=== PATIENT | female | born 1945 | race Caucasian/White ===

== ENCOUNTER → 2016-11-30 | Outpatient (CLI) | payer OTHER, MEDICARE ==
[~2016-11-30] MED LIST: ATOR-24 PO; CALC600T9 PO; CHOL1000 PO; CYNI1000 INJ; GLC/500 PO; LPR50X PO; NAPR1TAB9 PO; PRLSR20 PO; SERT-234 PO; SIMV40TA2 PO
== END | disposition home or self-care (01) ==
LOC: C.LABBC 09:49
PROVIDERS: ATTEND Internal Medicine Geriatric Medicine
DX: Z11.59 Encounter for screening for other viral diseases (principal)

== ENCOUNTER → 2016-12-31 | Outpatient (CLI) | payer OTHER, MEDICARE ==
--- NOTE | 2016-12-31 12:36 | MAMMOGRAPHY REPORT ---
BILATERAL DIGITAL SCREENING MAMMOGRAM WITH CAD: 12/31/2016 CLINICAL HISTORY: Routine screening. Patient has no complaints. TECHNIQUE: Current study was also evaluated with a Computer Aided Detection (CAD) system. Bilatera l CC and MLO views were obtained. COMPARISON: Comparison is made to exams dated: 12/19/2015 mammogram, 12/05/2013 mammogram, 12/11/2014 mammogram, 12/01/2012 mammogram, 06/15/2011 mammogram, and 06/09/2010 mammogram - [facility]. BREAST COMPOSITION: There are scattered areas of fibroglandular density in both breasts. FINDINGS: No suspicious masses, calcifications, or areas of architectural distortion are noted in e ither breast. There has been no significant interval change compared to prior exams. Scattered bilat eral benign-appearing calcifications are not significantly changed. IMPRESSION: ACR BI-RADS CATEGORY 2: BENIGN There is no mammographic evidence of malignancy. A 1 year screening mammogram is recommended. The p atient will receive written notification of the results. Approximately 10% of breast cancers are not detected with mammography. A negative mammographic repor t should not delay biopsy if a clinically suggestive mass is present. Omayra Manzanares M.D. ah/:12/31/2016 10:20:32 Shape Hand: Sofia CARTER(R)(M), [facility] letter sent: Normal 1/2 BI-RADS Code: ACR BI-RADS Category 2: Benign
== END | disposition home or self-care (01) ==
LOC: C.MAMM 10:02
PROVIDERS: ATTEND Internal Medicine Geriatric Medicine
DX: Z12.31 Encounter for screening mammogram for malignant neoplasm of breast (principal)

== ENCOUNTER → 2017-02-22 | Outpatient (CLI) | payer OTHER, MEDICARE ==
[2017-02-22 15:05] LABS: BASO % 0.9 %; BASO ABS # 0.08 K/uL (0-0.2); COMPLETE YES; EOS % 1.1 %; HEMATOCRIT 38.5 % (37-47); IG% 0.2 %; LYMPH % 16.9 %; LYMPH ABS # 1.54 K/uL (1.2-3.4); MEAN CORPUSCULAR HEMOGLOBIN 30.5 pg (25-34); MEAN CORPUSCULAR HGB CONC 33.5 g/dl (32-36); MEAN PLATELET VOLUME 10.8 fL (7.4-10.4); MONO % 4.9 %; PLATELET COUNT 324 K/uL (130-400); RED BLOOD COUNT 4.23 M/uL (4.2-5.4); WHITE BLOOD COUNT 9.11 K/uL (4.8-10.8)
[2017-02-22 15:33] LABS: ALT/SGPT 28 U/L (12-78); BLOOD UREA NITROGEN 14 mg/dl (7-18); BUN/CREATININE RATIO 18.1 (10-20); CALCIUM 9.1 mg/dl (8.5-10.1); CARBON DIOXIDE 23 mmol/L (21-32); CHLORIDE 104 mmol/L (98-107); CHOLESTEROL 148 mg/dl (0-200); CREATININE 0.78 mg/dl (0.60-1.20); GLUCOSE 154 mg/dl (70-99); POTASSIUM 3.8 mmol/L (3.5-5.1); SODIUM 138 mmol/L (136-145)
[2017-02-22 15:43] LABS: ALB/GLOB RATIO 1.2 (0.9-2); ALKALINE PHOSPHATASE 142 U/L (45-117); AST/SGOT 22 U/L (15-37); CHOLESTEROL/HDL RATIO 2.6; HDL CHOLESTEROL 57 mg/dl; LDL CHOLESTEROL CALCULATED 42 mg/dl; TRIGLYCERIDES 244 mg/dl (0-150); VERY LOW DENSITY LIPOPROT CALC 49 mg/dl
[2017-02-23 06:06] LABS: ESTIMATED AVERAGE GLUCOSE 131 mg/dl; HA1C FLAG Normal (Normal)
== END | disposition home or self-care (01) ==
LOC: C.LABBC 10:44
PROVIDERS: ATTEND Internal Medicine Geriatric Medicine
DX: M19.90 Unspecified osteoarthritis, unspecified site (principal); E11.9 Type 2 diabetes mellitus without complications; E55.9 Vitamin D deficiency, unspecified; E53.8 Deficiency of other specified B group vitamins; K76.0 Fatty (change of) liver, not elsewhere classified

== ENCOUNTER 2017-04-19 16:08 | Emergency (ER) | payer OTHER, MEDICARE ==
[~2017-04-19] VITALS: Ht 149.9 cm; Wt 69.6 kg
[~2017-04-19 16:08] MED LIST changes: -SIMV40TA2 PO
[2017-04-19 16:12] VITALS: TEMP 36.8; Ht 149.9 cm; Wt 69.6 kg
--- NOTE | 2017-04-19 16:20 | EMERGENCY ROOM VISIT NOTE ---
ED Visit Note First contact with patient: 16:19 I have seen and examined this patient with Didier Erickson and generally agree with the treatment plan as discussed. Problem List Medical Problems: (1) Broken foot Status: Resolved Current/Historical Medications Scheduled Atorvastatin (Lipitor), 40 MG PO HS Calcium Carbonate-Vitamin D (Calcium + D), 1 TAB PO NOON Cholecalciferol (Vitamin D3), 1 TAB PO NOON Cyanocobalamin (Cyanocobalamin), 1 DOSE INJ DIRECTED Metformin Hcl (Glucophage), 500 MG PO BID Metoprolol Tartrate (Metoprolol Tartrate), 25 MG PO BID Naproxen (Aleve), 220 MG PO NOON Omeprazole (Prilosec), 20 MG PO QAM Sertraline (Zoloft), 1.5 TAB PO HS Allergies Coded Allergies: Cefuroxime (Verified Allergy, Unknown, PT DOES NOT REMEMBER REACTION, 04/12) Doxycycline (Verified Allergy, Unknown, GI UPSET AND DIZZINESS, 04/12/17) Sulfa Drugs (Verified Allergy, Unknown, HIVES, 04/12/17) Uncoded Allergies: EARRINGS (Allergy, Unknown, PASSED OUT AND SKIN IRRITATION, 04/12/17) Vital Signs Date Time Temp Pulse Resp B/P Pulse Ox O2 Delivery O2 Flow Rate FiO2 04/19/17 16:12 36.8 91 18 111/69 96 Room Air Departure Information Referrals Ellis Auguste M.D. (PCP) Patient Instructions My [facility]
--- NOTE | 2017-04-19 16:42 | EMERGENCY ROOM VISIT NOTE ---
History First contact with patient: 16:19 Chief Complaint: FALL Stated Complaint: FALL, MINOR FACIAL INJURIES History of Present Illness The patient is a 71 year old female who presents to the Emergency Room with complaints of "fall, minor facial injuries". The patient states that today between 1:30 and 2 PM she was walking at the [place], looking around when she suddenly fall, is unsure why she fell, and fell forward striking the pavement with her face and right hand. She states that her right hip may have given out on her, as it has given out on her many times over the past few weeks. She is right-handed. She points to the dorsal aspect of the right hand/wrist as a location of pain. She also has a headache, and pain around the right eye. She points to some bleeding around the mouth and right eye. She believes her tetanus is up-to-date. She denies any history of heart problems, blood clots, hemoptysis, chest pain, shortness of breath, loss of consciousness. She does have a history of what she believes is a mini stroke. Review of Systems A complete 10-point Review of Systems was discussed with the patient, with pertinent positives and negatives listed in the History of Present Illness. All remaining Review of Systems questions can be considered negative unless otherwise specified. Past Medical/Surgical History Medical Problems: (1) Broken foot Family History No significant family history Social History Smoking Status: Never Smoker Housing Status: lives alone Occupation Status: retired Current/Historical Medications Scheduled Atorvastatin (Lipitor), 40 MG PO HS Calcium Carbonate-Vitamin D (Calcium + D), 1 TAB PO NOON Cholecalciferol (Vitamin D3), 1 TAB PO NOON Cyanocobalamin (Cyanocobalamin), 1 DOSE INJ DIRECTED Metformin Hcl (Glucophage), 500 MG PO BID Metoprolol Tartrate (Metoprolol Tartrate), 25 MG PO BID Naproxen (Aleve), 220 MG PO NOON Omeprazole (Prilosec), 20 MG PO QAM Sertraline (Zoloft), 1.5 TAB PO HS Allergies Coded Allergies: Cefuroxime (Verified Allergy, Unknown, PT DOES NOT REMEMBER REACTION, 04/19) Doxycycline (Verified Allergy, Unknown, GI UPSET AND DIZZINESS, 04/19/17) Sulfa Drugs (Verified Allergy, Unknown, HIVES, 04/19/17) Uncoded Allergies: EARRINGS (Allergy, Unknown, PASSED OUT AND SKIN IRRITATION, 04/12/17) Physical Exam Vital Signs Date Time Temp Pulse Resp B/P Pulse Ox O2 Delivery O2 Flow Rate FiO2 04/19/17 18:57 70 16 131/77 97 Room Air 04/19/17 18:10 81 04/19/17 18:07 100 Room Air 04/19/17 18:07 76 18 144/81 100 Room Air 04/19/17 16:12 36.8 91 18 111/69 96 Room Air Physical Exam VITAL SIGNS - Vital signs and nursing notes were reviewed. Patient is afebrile , normotensive, non-tachycardic and is saturating well on room air 96%. GENERAL -71-year-old female appearing her stated age. Communicates well with provider and answers questions appropriately. SKIN - Gross examination of the entire body surface demonstrates no lacerations to the body, there are numerous abrasions noted to the upper lip, and right periorbital region. There is ecchymosis and edema around the right periorbital region. There is a small abrasion noted to the right anterior knee. The integument is intact overlying the right hand/wrist. HEAD - Normocephalic, Atraumatic. No Nieves's Sign or Raccoon's Eyes. No depressed skull fractures palpable. EYES - PERRL with EOMI bilaterally. Without subconjunctival hemorrhage. Palpebral conjunctiva pink and moist with no injection. EARS - No deformities of external structures noted on gross examination bilaterally. No hemotympanum present. No tympanic perforation noted. Handle of malleus, umbo, cone of light, pars tensa/flaccid all easily visualized. NOSE - Midline and without cyanosis. No epistaxis or clear watery discharge noted. Septum midline without deviation. No septal hematoma noted. No overlying ecchymosis noted. MOUTH/OROPHARYNX - Without perioral cyanosis. Tongue midline with equal elevation of palate bilaterally. No blood noted in the oropharynx. No tonsillar hypertrophy, erythema, or exudates noted. No dental fractures noted. NECK - no tenderness to palpation over the cervical spinous processes. No cervical paraspinal muscle tenderness noted. No thoracic or lumbar tenderness. LUNGS - Chest wall symmetric without accessory muscle use, intercostals retractions, or central cyanosis. No flail chest or depressed fractures noted. No paradoxical chest wall movements noted. Normal vesicular breath sounds CTA B /L. No wheezes, rales, or rhonchi appreciated. CARDIAC - RRR with S1/S2. No murmur, rubs, or gallops appreciated. ABDOMEN - Abdominal contour and without pulsations or visible masses. BS normoactive all four quadrants. No rebound tenderness or guarding noted. Negative Issa's or Hall Johnson's Signs. No tenderness, palpable masses, hepatosplenomegaly, or ascites noted. EXTREMITIES - No gross deformities noted of the extremities. There is tenderness to palpation of the right dorsal aspect of the proximal hand/wrist. Decreased range of motion and air traffic control specialist strength of this region secondary to pain. She is neurovascularly intact. +5/5 strength noted in UE/LE bilaterally. No tenderness to palpation overlying the right proximal arm, left arm, left leg right leg. Active flexion of the right leg against examiner's resistance elicits pain in the right hip. There is slight decreased strength on this region secondary to pain. NEUROLOGIC - Cranial nerves II through XII grossly intact. Sensory intact to light touch throughout. PSYCH - A&Ox3 and cooperates fully with examiner. Pt is very pleasant and interacts well with examiner. Medical Decision & Procedures ER Provider Diagnostic Interpretation: CT OF THE HEAD WITHOUT CONTRAST CLINICAL HISTORY: Fall, struck face on pavement, right periorbital edema. COMPARISON STUDY: Head CT August 28, 2016. TECHNIQUE: Helical axial images of the head were obtained without IV contrast. Automated exposure control was utilized for the study. FINDINGS: No acute intracranial hemorrhage, midline shift or mass effect is present. Ventricular system is stable. Basilar cisterns are patent. There are no extra-axial collections. There are no findings to suggest acute dural sinus thrombosis or acute territorial infarct. There is a right periorbital contusion. There is no retrobulbar hematoma and the globes are intact. There is no calvarial fracture. The facial bones are better depicted on the maxillofacial CT. There is mild mucosal thickening of the ethmoid sinuses. IMPRESSION: 1. No acute intracranial findings. 2. No calvarial fracture. 3. Right periorbital contusion. Globes intact with no retrobulbar hematoma. Electronically signed by: Alex Kendrick M.D. 04/19/2017 5:22 PM Dictated Date/Time: 04/19/2017 5:[address] WITHOUT CONTRAST CLINICAL HISTORY: Fall, struck face on pavement, right periorbital edema. COMPARISON STUDY: Head CT August 28, 2016. TECHNIQUE: A maxillofacial CT was performed without IV contrast. Coronal and sagittal reformats were viewed. FINDINGS: There is a right periorbital contusion. The globes are intact and there is no retrobulbar hematoma. There is no acute facial bone fracture. There is mild to moderate mucosal thickening within the sinuses with postsurgical findings within the sinuses. There is no skull base fracture. The cervical spine CT will be reported separately. Orbital floors are intact. IMPRESSION: 1. No acute facial fracture. 2. Right periorbital contusion. Globes intact with no retrobulbar hematoma. Electronically signed by: Alex Kendrick M.D. 04/19/2017 5:27 PM Dictated Date/Time: 04/19/2017 5:[address] OF THE CERVICAL SPINE WITHOUT CONTRAST CLINICAL HISTORY: Fall, struck face on pavement, right periorbital edema. COMPARISON STUDY: No previous studies for comparison. TECHNIQUE: Helical axial images of the cervical spine were obtained without IV contrast. Sagittal and coronal reconstructions were viewed. FINDINGS: The craniocervical junction is intact. There is no acute cervical spine fracture. Vertebral body heights are maintained. Moderate multilevel degenerative disc disease is present with mild to moderate multilevel facet arthrosis. There is a mildly displaced comminuted proximal left clavicular fracture that extends to the sternoclavicular joint. There is callus formation. This fracture is likely chronic. There is no pneumothorax within visualized portions of the lung apices. IMPRESSION: 1. No acute cervical spine fracture or subluxation. 2. Comminuted, mildly displaced proximal left clavicular fracture with extension to the sternoclavicular joint. 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 Electronically signed by: Alex Kendrick M.D. 04/19/2017 5:39 PM Dictated Date/Time: 04/19/2017 5:33 PM CHEST ONE VIEW PORTABLE CLINICAL HISTORY: Fall COMPARISON STUDY: Chest radiograph August 28, 2016. FINDINGS: There is no pneumothorax or pleural effusion. Lungs are clear. Cardiac size is normal. Mediastinal contours are normal. There is mild shaped scoliosis of the thoracolumbar spine. IMPRESSION: No acute cardiopulmonary findings. Electronically signed by: Alex Kendrick M.D. 04/19/2017 5:55 PM Dictated Date/Time: 04/19/2017 5:54 PM RIGHT PELVIS/UNILATERAL HIP 2-3VIEWS CLINICAL HISTORY: Right hip pain following fall. COMPARISON: None FINDINGS: A 2.2 cm calcific density along the subtrochanteric portion of the left femur is chronic. There is no acute fracture within the pelvis or hips. Sacroiliac joints and symphysis pubis are intact. IMPRESSION: No acute fracture within the pelvis or hips. Electronically signed by: Alex Kendrick M.D. 04/19/2017 5:58 PM Dictated Date/Time: 04/19/2017 5:55 PM RIGHT PELVIS/UNILATERAL HIP 2-3VIEWS CLINICAL HISTORY: Right hip pain following fall. COMPARISON: None FINDINGS: A 2.2 cm calcific density along the subtrochanteric portion of the left femur is chronic. There is no acute fracture within the pelvis or hips. Sacroiliac joints and symphysis pubis are intact. IMPRESSION: No acute fracture within the pelvis or hips. Electronically signed by: Alex Kendrick M.D. 04/19/2017 5:58 PM Dictated Date/Time: 04/19/2017 5:55 PM RIGHT FOREARM 2 VIEWS ROUTINE CLINICAL HISTORY: Fall, right hand/wrist pain. COMPARISON: None FINDINGS: There is no acute fracture of the right radius or ulna. Alignment of the right elbow is anatomic and there is no evidence for right elbow joint effusion. There is a suspected acute fracture within the base of the right fourth metacarpal with an adjacent bone fragments and measures approximately 5 mm. IMPRESSION: 1. No acute fracture of the right radius or ulna. 2. Acute fracture within the base of the right fourth metacarpal with an adjacent bone fragment. Electronically signed by: Alex Kendrick M.D. 04/19/2017 6:01 PM Dictated Date/Time: 04/19/2017 5:58 PM RIGHT HAND MIN 3 VIEWS ROUTINE CLINICAL HISTORY: Right hand and wrist pain following fall. COMPARISON: None FINDINGS: There is an acute fracture within the base of the right fourth metacarpal with an adjacent bone fragment. There is also a suspected minimally displaced fracture of the distal shaft of the right fourth metacarpal which extends into the neck. IMPRESSION: 1. Acute fracture of the base of the right fourth metacarpal with associated fracture fragment. 2. Acute minimally displaced fracture of the distal shaft of the right fourth metacarpal. Electronically signed by: Alex Kendrick M.D. 04/19/2017 6:03 PM Dictated Date/Time: 04/19/2017 6:01 PM Laboratory Results 04/19/17 17:52 Red Blood Count 3.88, Mean Corpuscular Volume 91.5, Mean Corpuscular Hemoglobin 30.4, Mean Corpuscular Hemoglobin Concent 33.2, Mean Platelet Volume 9.8, Neutrophils (%) (Auto) 78.7, Lymphocytes (%) (Auto) 15.6, Monocytes (%) (Auto) 4.2, Eosinophils (%) (Auto) 0.9, Basophils (%) (Auto) 0.4, Neutrophils # (Auto) 9.65, Lymphocytes # (Auto) 1.91, Monocytes # (Auto) 0.51, Eosinophils # (Auto) 0.11, Basophils # (Auto) 0.05 04/19/17 16:50 Test 04/19/17 16:50 04/19/17 16:55 04/19/17 17:52 04/19/17 18:04 Prothrombin Time 10.0 SECONDS (9.0-12.0) Prothromb Time International Ratio 0.9 (0.9-1.1) Activated Partial Thromboplast Time 23.0 SECONDS (21.0-31.0) Partial Thromboplastin Ratio 0.9 Anion Gap 9.0 mmol/L (3-11) Est Creatinine Clear Calc Drug Dose 57.7 ml/min Estimated GFR () 90.7 Estimated GFR (Non- 78.2 BUN/Creatinine Ratio 19.2 (10-20) Calcium Level 8.9 mg/dl (8.5-10.1) Magnesium Level 1.8 mg/dl (1.8-2.4) Total Bilirubin 0.3 mg/dl (0.2-1) Aspartate Amino Transf (AST/SGOT) 23 U/L (15-37) Alanine Aminotransferase (ALT/SGPT) 31 U/L (12-78) Alkaline Phosphatase 143 U/L (45-117) Total Protein 7.0 gm/dl (6.4-8.2) Albumin 4.1 gm/dl (3.4-5.0) Globulin 2.9 gm/dl (2.5-4.0) Albumin/Globulin Ratio 1.4 (0.9-2) Thyroid Stimulating Hormone (TSH) 2.110 uIu/ml (0.300-4.500) Bedside Troponin I 0.000 ng/ml (0-0.045) White Blood Count 12.26 K/uL (4.8-10.8) Red Blood Count 3.88 M/uL (4.2-5.4) Hemoglobin 11.8 g/dL (12.0-16.0) Hematocrit 35.5 % (37-47) Mean Corpuscular Volume 91.5 fL (80-100) Mean Corpuscular Hemoglobin 30.4 pg (25-34) Mean Corpuscular Hemoglobin Concent 33.2 g/dl (32-36) Platelet Count 311 K/uL (130-400) Mean Platelet Volume 9.8 fL (7.4-10.4) Neutrophils (%) (Auto) 78.7 % Lymphocytes (%) (Auto) 15.6 % Monocytes (%) (Auto) 4.2 % Eosinophils (%) (Auto) 0.9 % Basophils (%) (Auto) 0.4 % Neutrophils # (Auto) 9.65 K/uL (1.4-6.5) Lymphocytes # (Auto) 1.91 K/uL (1.2-3.4) Monocytes # (Auto) 0.51 K/uL (0.11-0.59) Eosinophils # (Auto) 0.11 K/uL (0-0.5) Basophils # (Auto) 0.05 K/uL (0-0.2) RDW Standard Deviation 44.3 fL (36.4-46.3) RDW Coefficient of Variation 13.3 % (11.5-14.5) Immature Granulocyte % (Auto) 0.2 % Immature Granulocyte # (Auto) 0.03 K/uL (0.00-0.02) Urine Color YELLOW Urine Appearance CLEAR (CLEAR) Urine pH 5.5 (4.5-7.5) Urine Specific [place] 1.007 (1.000-1.030) Urine Protein NEG (NEG) Urine Glucose (UA) NEG (NEG) Urine Ketones NEG (NEG) Urine Occult Blood NEG (NEG) Urine Nitrite NEG (NEG) Urine Bilirubin NEG (NEG) Urine Urobilinogen NEG (NEG) Urine Leukocyte Esterase NEG (NEG) Medical Decision Patient was seen and evaluated as above. After obtaining a thorough history and physical examination IV access was initiated, and the above workup was performed. Patient presents status post fall from the ground level. She struck her right orbital region, and broke the fall with her right hand. She states she has a high pain tolerance. This occurred today around 1:32 PM. She denies passing out or syncopal event. She denies any lightheadedness. She believes that her right hip may have given out on her as it has over the past few weeks. She states that she fell on the pavement. She is right-handed. Someone did assist her in standing back up. Her tetanus is up-to-date. She denies any history of heart problems, history of blood clots, hemoptysis, chest pain, shortness of breath, loss of consciousness. There is associated headache today, pain around the right eye and around her mouth. At this time I do believe that imaging is appropriate, to include CT scan of the head, face and neck secondary to mechanism of injury as well as radiographs of the right hip and right hand. CT scan of the head face and neck are negative for acute process. Radiograph Of the right hip reveals a calcified region, otherwise negative. Right hand does reveal a fourth metacarpal fracture. For that she'll be placed in an ulnar gutter/boxer splint. This was placed with good fit. She was neurologically intact. She was neurovascularly intact. Her EKG does show that she has change compared to previous, but no evidence of OK at this time. She was informed upon findings of today's workup, and is to follow-up with a linseed oil order filler, her family doctor any bone doctor. Assistant Analyst is due to EKG changes over the past 12 years. No acute change. The patient climbed pain medication. Case was discussed with my attending, who also personally evaluated the patient. Patient was educated upon worrisome symptoms which to return, educated upon management of today's findings, had questions prior to discharge, and was discharged home in good condition. CBC reveals mild leukocytosis which I suspect secondary to today's fracture and fall. Chest x-ray was negative for acute process. I do not believe the patient had a syncopal event rather believe this was a mechanical fall. Mild anemia noted. No evidence of acute renal or liver failure. In the evaluation and treatment of this patient, the following differential diagnoses were considered: Concussion, Contrecoup Injury, Brain Tumor, Depression, Encephalitis, Hypothyroidism, Meningitis, CVA, TIA, Migraine, Cluster Headache, Intracranial Abnormality, Intracranial Hemorrhage, Subdural Hematoma, Subarachnoid Hemorrhage, Hydrocephalus, Wrist Sprain, Wrist Fracture, Wrist Dislocation, Scapholunate Dissociation, Carpal Fracture, Metacarpal Fracture, Radial Styloid Process Fracture, Ulnar Styloid Process Fracture, or Carpal Tunnel Syndrome. Hip Fracture, Hip Dislocation, Greater Trochanteric Bursitis, Musculoskeletal Pain, Lumbar Radiculopathy, among others. Impression Primary Impression: Fall Additional Impressions: Anemia Contusion of multiple sites Fracture of metacarpal of right hand, closed Departure Information Dispostion Home / Self-Care Condition GOOD Referrals Ellis Auguste M.D. (PCP) Tucker Valadez D.O. Szymanski, Alexander W., MD Patient Instructions My [facility] Additional Instructions You have been treated in the Emergency Department for Wrist Pain, right eye, head, hip and clavicle pain. For pain control, you can use the following [id number] medicines (if >12 yo): - Regular strength (325mg/tab) Tylenol (acetaminophen) 2 tabs every 4-6 hours as needed. Do not exceed 12 tablets in a 24 hour period. Avoid taking more than 3 grams (3000 mg) of Tylenol per day. This includes any other sources of acetaminophen you may take on a regular basis. - Regular strength (200 mg/tab) Advil (ibuprofen) 1-2 tabs every 4-6 hours as needed. Do not exceed a dose of 3200 mg per day. If this is a recent injury (<24 hrs), ice can be applied to the area of pain for the first 3 days to help decrease pain and inflammation. You have been provided the number for an Orthopaedic Surgeon. You should call this number as soon as possible to establish a follow-up visit from today's Emergency Department visit. (Dr. Valadez) There have been EKG changes, it is recommended to follow-up with her family doctor guarding this, followed by cardiology. The number has been listed within this paperwork. Your found to be slightly anemic here today. These follow-up with her family doctor regarding this. Keep the brace/splint in place until evaluated by Orthopedics. Return to the Emergency Department if your current symptoms worsen despite treatment course outlined above, or if you develop any of the following symptoms : intractable pain despite aforementioned treatment course or new onset of numbness or tingling of the fingers. Please return to emergency department with any new/concerning symptoms. Problem Qualifiers
[2017-04-19 17:13] LABS: INR 0.9 (0.9-1.1); PARTIAL THROMBOPLASTIN RATIO 0.9
--- NOTE | 2017-04-19 17:23 | DIAGNOSTIC IMAGING REPORT ---
CT OF THE HEAD WITHOUT CONTRAST CLINICAL HISTORY: Fall, struck face on pavement, right periorbital edema. COMPARISON STUDY: Head CT August 28, 2016. TECHNIQUE: Helical axial images of the head were obtained without IV contrast. Automated exposure control was utilized for the study. FINDINGS: No acute intracranial hemorrhage, midline shift or mass effect is present. Ventricular system is stable. Basilar cisterns are patent. There are no extra-axial collections. There are no findings to suggest acute dural sinus thrombosis or acute territorial infarct. There is a right periorbital contusion. There is no retrobulbar hematoma and the globes are intact. There is no calvarial fracture. The facial bones are better depicted on the maxillofacial CT. There is mild mucosal thickening of the ethmoid sinuses. IMPRESSION: 1. No acute intracranial findings. 2. No calvarial fracture. 3. Right periorbital contusion. Globes intact with no retrobulbar hematoma. Electronically signed by: Alex Kendrick M.D. 04/19/2017 5:22 PM Dictated Date/Time: 04/19/2017 5:18 PM
[2017-04-19 17:27] LABS: BUN/CREATININE RATIO 19.2 (10-20); CALCIUM 8.9 mg/dl (8.5-10.1); CREATININE 0.77 mg/dl (0.60-1.20); MAGNESIUM 1.8 mg/dl (1.8-2.4); POTASSIUM 3.8 mmol/L (3.5-5.1)
--- NOTE | 2017-04-19 17:28 | DIAGNOSTIC IMAGING REPORT ---
MAXILLOFACIAL CT WITHOUT CONTRAST CLINICAL HISTORY: Fall, struck face on pavement, right periorbital edema. COMPARISON STUDY: Head CT August 28, 2016. TECHNIQUE: A maxillofacial CT was performed without IV contrast. Coronal and sagittal reformats were viewed. FINDINGS: There is a right periorbital contusion. The globes are intact and there is no retrobulbar hematoma. There is no acute facial bone fracture. There is mild to moderate mucosal thickening within the sinuses with postsurgical findings within the sinuses. There is no skull base fracture. The cervical spine CT will be reported separately. Orbital floors are intact. IMPRESSION: 1. No acute facial fracture. 2. Right periorbital contusion. Globes intact with no retrobulbar hematoma. Electronically signed by: Alex Kendrick M.D. 04/19/2017 5:27 PM Dictated Date/Time: 04/19/2017 5:22 PM
[2017-04-19 17:38] LABS: ALB/GLOB RATIO 1.4 (0.9-2); THYROID STIMULATING HORMONE 2.11 uIu/ml (0.300-4.500)
--- NOTE | 2017-04-19 17:40 | DIAGNOSTIC IMAGING REPORT ---
CT OF THE CERVICAL SPINE WITHOUT CONTRAST CLINICAL HISTORY: Fall, struck face on pavement, right periorbital edema. COMPARISON STUDY: No previous studies for comparison. TECHNIQUE: Helical axial images of the cervical spine were obtained without IV contrast. Sagittal and coronal reconstructions were viewed. FINDINGS: The craniocervical junction is intact. There is no acute cervical spine fracture. Vertebral body heights are maintained. Moderate multilevel degenerative disc disease is present with mild to moderate multilevel facet arthrosis. There is a mildly displaced comminuted proximal left clavicular fracture that extends to the sternoclavicular joint. There is callus formation. This fracture is likely chronic. There is no pneumothorax within visualized portions of the lung apices. IMPRESSION: 1. No acute cervical spine fracture or subluxation. 2. Comminuted, mildly displaced proximal left clavicular fracture with extension to the sternoclavicular joint. 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 Electronically signed by: Alex Kendrick M.D. 04/19/2017 5:39 PM Dictated Date/Time: 04/19/2017 5:33 PM
--- NOTE | 2017-04-19 17:56 | DIAGNOSTIC IMAGING REPORT ---
CHEST ONE VIEW PORTABLE CLINICAL HISTORY: Fall COMPARISON STUDY: Chest radiograph August 28, 2016. FINDINGS: There is no pneumothorax or pleural effusion. Lungs are clear. Cardiac size is normal. Mediastinal contours are normal. There is mild shaped scoliosis of the thoracolumbar spine. IMPRESSION: No acute cardiopulmonary findings. Electronically signed by: Alex Kendrick M.D. 04/19/2017 5:55 PM Dictated Date/Time: 04/19/2017 5:54 PM
--- NOTE | 2017-04-19 17:59 | DIAGNOSTIC IMAGING REPORT ---
RIGHT PELVIS/UNILATERAL HIP 2-3VIEWS CLINICAL HISTORY: Right hip pain following fall. COMPARISON: None FINDINGS: A 2.2 cm calcific density along the subtrochanteric portion of the left femur is chronic. There is no acute fracture within the pelvis or hips. Sacroiliac joints and symphysis pubis are intact. IMPRESSION: No acute fracture within the pelvis or hips. Electronically signed by: Alex Kendrick M.D. 04/19/2017 5:58 PM Dictated Date/Time: 04/19/2017 5:55 PM
[2017-04-19 18:01] LABS: BASO % 0.4 %; BASO ABS # 0.05 K/uL (0-0.2); COMPLETE YES; EOS % 0.9 %; HEMATOCRIT 35.5 % (37-47); IG% 0.2 %; LYMPH % 15.6 %; LYMPH ABS # 1.91 K/uL (1.2-3.4); MEAN CELL VOLUME 91.5 fL (80-100); MEAN CORPUSCULAR HEMOGLOBIN 30.4 pg (25-34); MEAN CORPUSCULAR HGB CONC 33.2 g/dl (32-36); MEAN PLATELET VOLUME 9.8 fL (7.4-10.4); MONO % 4.2 %; NEUT % 78.7 %; PLATELET COUNT 311 K/uL (130-400); RED BLOOD COUNT 3.88 M/uL (4.2-5.4); WHITE BLOOD COUNT 12.26 K/uL (4.8-10.8)
--- NOTE | 2017-04-19 18:03 | DIAGNOSTIC IMAGING REPORT ---
RIGHT FOREARM 2 VIEWS ROUTINE CLINICAL HISTORY: Fall, right hand/wrist pain. COMPARISON: None FINDINGS: There is no acute fracture of the right radius or ulna. Alignment of the right elbow is anatomic and there is no evidence for right elbow joint effusion. There is a suspected acute fracture within the base of the right fourth metacarpal with an adjacent bone fragments and measures approximately 5 mm. IMPRESSION: 1. No acute fracture of the right radius or ulna. 2. Acute fracture within the base of the right fourth metacarpal with an adjacent bone fragment. Electronically signed by: Alex Kendrick M.D. 04/19/2017 6:01 PM Dictated Date/Time: 04/19/2017 5:58 PM
--- NOTE | 2017-04-19 18:05 | DIAGNOSTIC IMAGING REPORT ---
RIGHT HAND MIN 3 VIEWS ROUTINE CLINICAL HISTORY: Right hand and wrist pain following fall. COMPARISON: None FINDINGS: There is an acute fracture within the base of the right fourth metacarpal with an adjacent bone fragment. There is also a suspected minimally displaced fracture of the distal shaft of the right fourth metacarpal which extends into the neck. IMPRESSION: 1. Acute fracture of the base of the right fourth metacarpal with associated fracture fragment. 2. Acute minimally displaced fracture of the distal shaft of the right fourth metacarpal. Electronically signed by: Alex Kendrick M.D. 04/19/2017 6:03 PM Dictated Date/Time: 04/19/2017 6:01 PM
[2017-04-19 18:07] VITALS: O2SAT 100
[2017-04-19 18:57] VITALS: BP 131/77; PULSE 70; O2SAT 97
[2017-04-19 19:01] LABS: URINE APPEARANCE CLEAR (CLEAR); URINE BILIRUBIN NEG (NEG); URINE COLOR YELLOW; URINE NITRITE NEG (NEG); URINE PH 5.5 (4.5-7.5); URINE SPECIFIC GRAVITY 1.007 (1.000-1.030); UROBILINOGEN NEG (NEG); ZZUR CULT IF INDIC CLEAN CATCH NO
[2017-04-19 19:12] LABS: MANUAL MICROSCOPIC REQUIRED? NO; REVIEW REQ? NO
== END 2017-04-19 19:21 | disposition home or self-care (01) ==
LOC: C.EDB 16:09 → C.EDC 19:21
DX: S62.314A Displaced fracture of base of fourth metacarpal bone, right hand, initial encounter for closed fracture (principal); S62.324A Displaced fracture of shaft of fourth metacarpal bone, right hand, initial encounter for closed fracture; S00.511A Abrasion of lip, initial encounter; S00.211A Abrasion of right eyelid and periocular area, initial encounter; S00.11XA Contusion of right eyelid and periocular area, initial encounter; S80.211A Abrasion, right knee, initial encounter; W18.30XA Fall on same level, unspecified, initial encounter; D64.9 Anemia, unspecified

== ENCOUNTER → 2017-06-01 | Day surgery (SDC) | payer OTHER, MEDICARE ==
[2017-05-11 10:22] VITALS: Ht 149.9 cm; Wt 69.1 kg
[~2017-06-01] VITALS: Ht 149.9 cm; Wt 69.1 kg
[~2017-06-01] MED LIST changes: +500ML BSS 0.3ML EPI 1:1000PF IRRIG ONE; +ACETAMINOPHEN 325 MG TAB PO PRN; +AMVISC PLUS 0.8ML SYRINGE INT OCU ONE; +ATROPINE SULFATE 0.1 MG/ML 5ML SYR IV PRN; +BSS FLUSH ONE; +EpHEDrine SULFATE INJ 50 MG/ML AMP IV PRN; +EpINEphrine INJ 1MG/ML AMP 1 MG/ML AMP ONE; +LACTATED RINGER'S 1000ML 500 ML IV SCH; +LIDOCAINE 3.5% OPH GEL PER APPLICATION CHARGE ONE; +LIDOCAINE HCL 1% MPF 2 ML VIAL ONE; +MIDAZOLAM HCL 1 MG/ML 2ML VIAL ONE; +OCUCOAT 1 ML SOLN IO ONE; +PHENYLEPHRINE HCL 10% OP SOLN PER DROP CHARGE OPR SCH; +POVIDONE-IODINE OP SOLN 30 ML BTL ONE; +PROPARACAINE 0.5% OP SOLN PER DROP CHARGE OPR SCH; +TOBRAMYCIN/DEXAMETHASONE OPH OINT PER APPLN CHARGE ONE
[2017-06-01] MEDS: PHENYLEPHRINE HCL 2.5% OP SOLN PER DROP CHARGE OPR SCH ×2 (06:39→06:49)
[2017-06-01] MEDS: TROPICAMIDE 1% OP SOLN PER DROP CHARGE OPR SCH ×2 (06:40→06:50)
[2017-06-01] MEDS: CYCLOPENTOLATE HCL 1% OP SOLN PER DROP CHARGE OPR SCH ×2 (06:42→06:51)
[2017-06-01] MEDS: KETOROLAC 0.5% OP SOLN PER DROP CHARGE OPR SCH ×2 (06:43→06:53)
[2017-06-01] MEDS: GATIFLOXACIN OP SOLN PER DROP CHARGE OPR SCH ×2 (06:44→06:55)
--- NOTE | 2017-06-01 06:55 | History & Physical Bridge - [place] ---
H&P Re-Evaluation Bridge Note: I have examined the patient, reviewed the History & Physical and in the interval since the performance of the History & Physical I have noted the following changes of clinical significance: No changes noted
--- NOTE | 2017-06-01 07:45 | Discharge Instructions-SurgCtr ---
Discharge Instructions Date of Service Jun 01, 2017. Visit Reason for Visit: Cataract Right Eye Discharge Discharge Diagnosis / Problem: cataract Discharge Goals Goal(s): Improve function Medications Stopped Medications Name(s): METFORMIN HELD FOR 48 HOURS Activity Recommendations Activity Limitations: per Instructions/Follow-up section Anesthesia . Post Anesthesia Instructions: If you have had General Anesthesia or IV Sedation: * Do not drive today. * Resume driving when surgeon permits. * Do not make important decisions or sign legal documents today. * Call surgeon for: 1. Temperature elevations greater than 101 degrees F. 2. Uncontrollable pain. 3. Excessive bleeding. 4. Persistent nausea and vomiting. 5. Medication intolerance (nausea, vomiting or rash). * For nausea and vomiting use only clear liquids such as: tea, soda, bouillon until nausea subsides, then gradually increase diet as tolerated. * If you have any concerns or questions, call your surgeon's office. If physician is unavailable and it is an emergency, call 911 or go to the nearest emergency room. . Instructions / Follow-Up Instructions / Follow-Up ACTIVITY RECOMMENDATIONS: * No strenuous lifting, jogging or running for 4 days * No swimming or yard work for 1 week. * Limited bending is permitted, such as putting on shoes. RETURN TO SCHOOL/WORK: No work until seen by physician in office. MEDICATIONS: Resume previous medications unless instructed otherwise by your surgeon. This includes eye drops for glaucoma. Zymaxid/Gatifloxacin (orlando cap) - one drop every 2 hours until bedtime Nevanac/Ilevro/Prolensa/Ketorolac (pritchard cap) - one drop every 4 hours until bedtime Prednisolone/Durezol (white/pink cap, SHAKE WELL) - one drop every 2 hours until bedtime Starting tomorrow - all 3 drops every 4 hours until seen in the office Optive drops - as needed for discomfort SPECIAL CARE INSTRUCTIONS: * Wear eyeshield when sleeping, for four nights. * You may wear your own glasses or sunglasses while awake. * You may read or watch TV * You may shower and wash your face, but be gentle around the eye and pat dry. * Blurry vision and mild irritation are normal. * Call office if pain is more severe or vision becomes dark at . FOLLOW UP VISIT: Follow-up with Dr Koehler tomorrow. Diet Recommendations Home Diet: resume previous diet Procedures Procedures Performed: Right Cataract Phacoemulsification With Intraocular Lens Implant Pending Studies Studies pending at discharge: no Medical Emergencies . Who to Call and When: Medical Emergencies: If at any time you feel your situation is an emergency, please call 911 immediately. . Non-Emergent Contact Non-Emergency issues call your: Mysql Database Administrator . . "Provider Documentation" section prepared by Tre Koehler. .
--- NOTE | 2017-06-01 07:45 | [facility] Operative Report ---
Operative Report Date of Service Jun 01, 2017. Operative Report 1. PREOPERATIVE DIAGNOSIS: Cataract of the right eye. 2. POSTOPERATIVE DIAGNOSIS: Same. 3. PROCEDURE: Phacoemulsification with intraocular lens implantation of the right eye. SURGEON: Dr. Tre Koehler. ANESTHESIA: Topical Lidocaine gel, 1% Non- Preserved intracameral Lidocaine, and monitored intravenous sedation. INDICATIONS FOR THE PROCEDURE: The patient is a 71 - year-old female with a history of cataract of the right eye causing significant visual impairment. The details of the proposed procedure were explained to the patient who asked appropriate questions and following discussion of all risks, benefits and alternatives agreed to have the procedure done. 4. OPERATION AND FINDINGS: DESCRIPTION OF PROCEDURE: After informed consent was obtained, the patient was brought to the Operating Room at the [facility]. The patient was placed in a supine position and then the right eye was prepped and draped in the usual sterile fashion for intraocular surgery. A drop of topical Lidocaine gel was placed in the operative eye. A wire lid speculum was then placed in the fornices. A corneal paracentesis was then created temporally. The Non-Preserved Lidocaine was then instilled into the anterior chamber. The anterior chamber was then pressurized with viscoelastic. A 2.0 mm clear corneal incision was then created temporally. A cystotome was inserted into the anterior chamber and used to create a tear in the anterior lens capsule. This capsular tear was then used to create a small flap and the flap was dragged in a counterclockwise direction in order to create a continuous curvilinear capsulorrhexis. Hydrodissection was accomplished with balanced salt solution. Phacoemulsification of the lens nucleus was then performed in a standard [id number] technique. The phaco time was 27 seconds with an average power of 10 %. The remaining cortical material was removed using irrigation aspiration. The capsular bag was then filled with viscoelastic. A [employer]ch [employer] Lomb MI60L +21.5 diopters lens was then loaded into the injector and injected into the capsular bag. The remaining viscoelastic was removed with the irrigation aspiration handpiece. The wound was hydrated and then checked and found to be watertight. The intraocular pressure was checked and found to be adequate. The wire lid speculum was removed and the patient's face was cleaned and dried. TobraDex ointment was placed in the inferior fornix. The patient was discharged to the Recovery Room having tolerated the procedure well. There were no complications. The patient will be seen tomorrow in the office for follow-up. I attest to the content of the Intraoperative Record and any orders documented therein. Any exceptions are noted below.
--- NOTE | 2017-06-01 08:00 | Anesthesia Progress Nt - [facility] ---
Anesthesia Post Op Note Date & Time Jun 01, 2017 at 08:00 Vital Signs Vital Signs Past 12 Hours Date Time Temp Pulse Resp B/P (MAP) Pulse Ox O2 Delivery O2 Flow Rate FiO2 06/01/17 06:22 36.1 74 16 130/74 (92) 99 Room Air Notes Mental Status: alert / awake / arousable, participated in evaluation Pt Amnestic to Procedure: Yes Nausea / Vomiting: adequately controlled Pain: adequately controlled Airway Patency, RR, SpO2: stable & adequate BP & HR: stable & adequate Hydration State: stable & adequate Anesthetic Complications: no major complications apparent
[2017-06-01 08:09] VITALS: BP 122/77; PULSE 58; O2SAT 100
== END | disposition home or self-care (01) ==
LOC: X.SURG 06:01
PROVIDERS: ATTEND Ophthalmology
DX: H26.9 Unspecified cataract (principal); I10 Essential (primary) hypertension; K21.9 Gastro-esophageal reflux disease without esophagitis; E11.9 Type 2 diabetes mellitus without complications; M19.90 Unspecified osteoarthritis, unspecified site; Z83.3 Family history of diabetes mellitus; Z82.49 Family history of ischemic heart disease and other diseases of the circulatory system

== ENCOUNTER → 2017-07-07 | Outpatient (CLI) | payer OTHER, MEDICARE ==
[~2017-07-07] MED LIST changes: -500ML BSS 0.3ML EPI 1:1000PF IRRIG ONE; -ACETAMINOPHEN 325 MG TAB PO PRN; -AMVISC PLUS 0.8ML SYRINGE INT OCU ONE; -ATROPINE SULFATE 0.1 MG/ML 5ML SYR IV PRN; -BSS FLUSH ONE; -EpHEDrine SULFATE INJ 50 MG/ML AMP IV PRN; -EpINEphrine INJ 1MG/ML AMP 1 MG/ML AMP ONE; -LACTATED RINGER'S 1000ML 500 ML IV SCH; -LIDOCAINE 3.5% OPH GEL PER APPLICATION CHARGE ONE; -LIDOCAINE HCL 1% MPF 2 ML VIAL ONE; -MIDAZOLAM HCL 1 MG/ML 2ML VIAL ONE; -OCUCOAT 1 ML SOLN IO ONE; -PHENYLEPHRINE HCL 10% OP SOLN PER DROP CHARGE OPR SCH; -POVIDONE-IODINE OP SOLN 30 ML BTL ONE; -PROPARACAINE 0.5% OP SOLN PER DROP CHARGE OPR SCH; -TOBRAMYCIN/DEXAMETHASONE OPH OINT PER APPLN CHARGE ONE
[2017-07-07 13:56] LABS: AST/SGOT 20 U/L (15-37); BLOOD UREA NITROGEN 15 mg/dl (7-18); CALCIUM 9.4 mg/dl (8.5-10.1); CARBON DIOXIDE 27 mmol/L (21-32); CHLORIDE 105 mmol/L (98-107); CREATININE 0.69 mg/dl (0.60-1.20); GLUCOSE 92 mg/dl (70-99); POTASSIUM 4.3 mmol/L (3.5-5.1); SODIUM 138 mmol/L (136-145)
[2017-07-07 13:59] LABS: ALB/GLOB RATIO 1.2 (0.9-2); ALKALINE PHOSPHATASE 142 U/L (45-117); ALT/SGPT 32 U/L (12-78)
[2017-07-07 14:01] LABS: ESTIMATED AVERAGE GLUCOSE 126 mg/dl; HA1C FLAG Normal (Normal)
== END | disposition home or self-care (01) ==
LOC: C.LABBC 11:17
PROVIDERS: ATTEND Internal Medicine Geriatric Medicine
DX: I10 Essential (primary) hypertension (principal); E11.9 Type 2 diabetes mellitus without complications; K76.0 Fatty (change of) liver, not elsewhere classified

== ENCOUNTER → 2017-12-09 | Outpatient (CLI) | payer OTHER, MEDICARE | END | disposition home or self-care (01) | LOC: C.MAMM 15:14 | PROVIDERS: ATTEND Internal Medicine Geriatric Medicine | DX: S62.309A Unspecified fracture of unspecified metacarpal bone, initial encounter for closed fracture (principal); X58.XXXA Exposure to other specified factors, initial encounter; Z87.898 Personal history of other specified conditions; M85.89 Other specified disorders of bone density and structure, multiple sites ==

== ENCOUNTER → 2017-12-28 | Outpatient (CLI) | payer OTHER, MEDICARE ==
--- NOTE | 2017-12-28 14:26 | DIAGNOSTIC IMAGING REPORT ---
MRI OF THE BRAIN WITHOUT CONTRAST CLINICAL HISTORY: R29.6 Frequent [id number] Mild cognitive [id number] COMPARISON STUDY: Noncontrast head CT dated 04/19/2017, MRI the brain dated 11/28/2012 FINDINGS: Sagittal T1, axial diffusion, proton density and T2 weighted axial, coronal FLAIR, and axial T1-weighted images were acquired. No intra or extra-axial mass lesions are visualized Axial diffusion-weighted images reveal no evidence of acute or subacute infarction. There is no evidence of ventricular dilatation. Proton density T2-weighted and FLAIR images reveal scattered foci of increased T2 signal within the white matter, likely on a small vessel basis. The findings are only minimally progressive compared the prior 2012 study. There are no abnormal flow voids. IMPRESSION: 1. No acute intracranial findings 2. No evidence of intracranial mass 3. No evidence of acute or subacute infarction Electronically signed by: Garry Muniz M.D. 12/28/2017 2:25 PM Dictated Date/Time: 12/28/2017 2:23 PM
== END | disposition home or self-care (01) ==
LOC: C.MRI 13:29
PROVIDERS: ATTEND Psychiatry & Neurology Neurology
DX: G31.84 Mild cognitive impairment of uncertain or unknown etiology (principal); R29.6 Repeated falls

== ENCOUNTER → 2018-01-24 | Outpatient (CLI) | payer OTHER, MEDICARE ==
[2018-01-24 13:32] LABS: BASO % 0.7 %; BASO ABS # 0.06 K/uL (0-0.2); EOS % 0.9 %; EOS ABS # 0.08 K/uL (0-0.5); HEMATOCRIT 37.5 % (37-47); HEMOGLOBIN 12.9 g/dL (12.0-16.0); IG# 0.02 K/uL (0.00-0.02); LYMPH % 20.3 %; LYMPH ABS # 1.82 K/uL (1.2-3.4); MEAN CELL VOLUME 90.6 fL (80-100); MEAN CORPUSCULAR HEMOGLOBIN 31.2 pg (25-34); MEAN CORPUSCULAR HGB CONC 34.4 g/dl (32-36); MEAN PLATELET VOLUME 10.5 fL (7.4-10.4); MONO % 5.6 %; NEUT % 72.3 %; PLATELET COUNT 334 K/uL (130-400); RED CELL DISTRIBUTION WIDTH CV 13.4 % (11.5-14.5); RED CELL DISTRIBUTION WIDTH SD 44.4 fL (36.4-46.3); WHITE BLOOD COUNT 8.98 K/uL (4.8-10.8)
[2018-01-24 13:57] LABS: HEMOGLOBIN A1C 6.3 % (4.5-5.6)
[2018-01-24 15:05] LABS: ALBUMIN 3.9 gm/dl (3.4-5.0); ALT/SGPT 32 U/L (12-78); AST/SGOT 19 U/L (15-37); BLOOD UREA NITROGEN 15 mg/dl (7-18); CARBON DIOXIDE 23 mmol/L (21-32); CREATININE 0.72 mg/dl (0.60-1.20); GLUCOSE 130 mg/dl (70-99); POTASSIUM 3.9 mmol/L (3.5-5.1); SODIUM 136 mmol/L (136-145)
[2018-01-24 15:16] LABS: ALKALINE PHOSPHATASE 149 U/L (45-117); TOTAL PROTEIN 7.4 gm/dl (6.4-8.2)
== END | disposition home or self-care (01) ==
LOC: C.LABBC 11:56
PROVIDERS: ATTEND Internal Medicine Geriatric Medicine
DX: M19.90 Unspecified osteoarthritis, unspecified site (principal); I10 Essential (primary) hypertension; G47.33 Obstructive sleep apnea (adult) (pediatric); E11.9 Type 2 diabetes mellitus without complications; F32.9 Major depressive disorder, single episode, unspecified; K76.0 Fatty (change of) liver, not elsewhere classified; R29.6 Repeated falls; S62.309A Unspecified fracture of unspecified metacarpal bone, initial encounter for closed fracture; X58.XXXA Exposure to other specified factors, initial encounter

== ENCOUNTER → 2018-07-11 | Outpatient (CLI) | payer OTHER, MEDICARE ==
[2018-07-11 13:49] LABS: HEMOGLOBIN A1C 6.3 % (4.5-5.6)
[2018-07-11 14:00] LABS: ALBUMIN 3.9 gm/dl (3.4-5.0); BLOOD UREA NITROGEN 17 mg/dl (7-18); CALCIUM 8.7 mg/dl (8.5-10.1); CARBON DIOXIDE 21 mmol/L (21-32); CREATININE 0.82 mg/dl (0.60-1.20); GLUCOSE 195 mg/dl (70-99); POTASSIUM 3.8 mmol/L (3.5-5.1); SODIUM 138 mmol/L (136-145); TOTAL PROTEIN 7.4 gm/dl (6.4-8.2)
[2018-07-11 14:01] LABS: ALKALINE PHOSPHATASE 134 U/L (45-117); ALT/SGPT 26 U/L (12-78); AST/SGOT 16 U/L (15-37); CHOLESTEROL 155 mg/dl (0-200); LDL CHOLESTEROL CALCULATED 46 mg/dl
== END | disposition home or self-care (01) ==
LOC: C.LABBC 10:20
PROVIDERS: ATTEND Internal Medicine Geriatric Medicine
DX: I10 Essential (primary) hypertension (principal); E11.9 Type 2 diabetes mellitus without complications

== ENCOUNTER 2023-04-15 18:42 | Inpatient (IN) ==
[2023-04-15] MEDS ORDERED: ONDANSETRON INJ 2 MG/ML 2 ML VIAL IV STA (18:48)
[2023-04-15] MEDS ORDERED: SODIUM CHLORIDE 0.9% 500 ML IV STA (18:48)
--- NOTE | 2023-04-15 18:57 | Emergency Department Note ---
Impression & Plan Closed right humeral fracture, Fall, Head injury ED Provider Note NAME: RUFINO BEDOYA AGE: 77 SEX: F : 1945 ARRIVES VIA: Ambulance INFORMANT: Patient, EMS ED PROVIDER(S): Edgardo Leija DO CHIEF COMPLAINT: Fall HPI: The patient is a 77-year-old female who presented to the emergency department by ambulance after a fall. The patient had a ground-level fall while she was chasing after her cat in her backyard. She slipped onto her right side. She injured her right upper extremity. She also states that she injured her knees. She did strike her head but there is no reported loss of consciousness. The patient denies having any fever. She denies having any chest pain or difficulty breathing. The patient was unable to stand because of the injury to her right upper extremity. The patient was given intranasal fentanyl prior to arrival. ROS: See above HPI for pertinent positives & negatives. A total of 10 systems reviewed and were otherwise negative. PAST MEDICAL HISTORY: See Below PAST SURGICAL HISTORY: See Below FAMILY HISTORY: See Below SOCIAL HISTORY: See Below HOME MEDICATIONS: See Below ALLERGIES: See Below VITALS: See Below PHYSICAL EXAMINATION: GENERAL: The patient is awake and alert. She is very anxious appearing and appears to be in significant pain. EYES: The conjunctivae are clear. The pupils are round and reactive. EARS, NOSE, MOUTH AND THROAT: The nose is without any evidence of any deformity. NECK: The neck is nontender and supple. RESPIRATORY: Normal respiratory effort is noted there is no evidence of wheezing rhonchi or rales CARDIOVASCULAR: Regular rate and rhythm noted there no murmurs rubs or gallops normal S1 normal S2. GASTROINTESTINAL: The abdomen is soft. Abdomen is nontender. BACK: No midline tenderness or or step-off noted range of motion in flexion extension as well as rotation no signs of muscle spasm noted MUSCULOSKELETAL/EXTREMITIES: There is no pain with range of motion testing of the lower extremities. There is pain with range of motion testing of the right shoulder. There is symmetric swelling on the proximal humerus. There is no pain with palpation over the right elbow or right wrist. SKIN: There is no obvious evidence of any rash. There are no petechiae, pallor or cyanosis noted. Pulses are symmetric in both wrists and both feet. NEUROLOGIC: Patient is awake alert and oriented x3. MEDICAL DECISION MAKING: The patient is a 77-year-old female who presented to the emergency department for an evaluation after falling onto her right side. The patient had obvious pain and swelling to her right upper extremity. She was found to have a very significant spiral fracture of the proximal right humerus. The patient was treated with IV pain medication she was also treated with splinting. I discussed the patient's laboratory and radiographic studies with her. Due to the nature of this injury as well as the degree of pain I do not feel the patient would be a good candidate for outpatient management. This reason I discussed her condition with the on-call [facility] hospitalist group. They have agreed to evaluate the patient in the emergency department for further domo gement and disposition. The patient did have symmetric pulses in both wrist. Triage Nursing notes reviewed. Prior medical records reviewed Vital Signs: reviewed and remarkable for hypertension. Differential diagnosis: Fracture, subluxation, dislocation, contusion, ligamentous injury, neurovascular, compartment syndrome, rhabdomyolysis, as well as other pathologies. ER treatment provided: See below Diagnostics interpreted by me: ECG: none Cardiac Monitoring: An order was placed for continuous cardiac monitoring. The monitor shows a rate of 70 bpm with sinus rhythm. Laboratory studies: As stated above and show below. Imaging studies: See below. Radiographic imaging was reviewed by myself Consultation(s): I discussed this case with Dr. Branch who is on-call for the [facility]ist group. Past Med/Surg History Medical History Depression DM type 2 (diabetes mellitus, type 2) GERD (gastroesophageal reflux disease) Hypertension Mild cognitive disorder Obstructive sleep apnea Osteoporosis Vitamin B12 deficiency Vitamin D deficiency Surgical History H/O breast surgery H/O dilation and curettage H/O foot surgery H/O oral surgery H/O sinus surgery History of tonsillectomy and adenoidectomy History of tubal ligation S/P cataract surgery Family History Father Hypertension Stroke syndrome Diabetes Colon cancer Acute myocardial infarction Myocardial infarction Colorectal cancer Stroke Mother Diabetes Heart disease Grandmother Breast cancer Colon cancer Colorectal cancer Denies family history of Ovarian cancer Prostate cancer Lung cancer Social History Smoking Status: Never smoker Second Hand Exposure: No; Do You Dip or Chew Tobacco: No; Hx Alcohol Use: Yes Alcohol type: beer and wine Alcohol Intake Frequency: Monthly or Less Hx Substance Use: No Preferred Language: Mongolian Communication Ability: Effective Visual Impairment: Diminished Hearing Ability: Normal Biomedical Equipment Specialist Required: No marital status: Current Living Situation: Alone current occupational status: retired How many Children do You have: 1 Feels Safe at Home: Yes Childhood Exposure to Second-Hand Smoke: Yes Diet: diabetic caffeine: Yes Dental Care, Regularly: Yes Physical Activity Frequency: Does not Exercise Physical Activity Frequency Comment: limited due to physical condition Seatbelt Use: always Sunscreen Use: Yes Do you think of yourself as: straight/heterosexual Allergies Allergies Allergy/AdvReac Type Severity Reaction Status Date / Time doxycycline Allergy Intermediate GI UPSET Verified 04/15/23 20:32 AND DIZZINESS Sulfa (Sulfonamide Allergy Intermediate HIVES Verified 04/15/23 20:32 Antibiotics) hydrocortisone Allergy Mild RASH Verified 04/15/23 20:32 cefuroxime Allergy Unknown PT DOES Verified 04/15/23 20:32 NOT REMEMBER REACTION Home Meds Home Medications Medication Instructions Recorded Confirmed lancets 30 gauge (OneTouch Delica #25 ea 03/04/20 01/14/23 Lancets) naproxen sodium 220 mg tablet 220 mg PO Q8H PRN pain 12/05/20 04/15/23 Walking Cane 04/01/22 01/14/23 blood sugar diagnostic (OneTouch 04/01/22 01/14/23 Ultra Blue Test Strip) nystatin 100,000 unit/gram topical 1 applic topical BID PRN Skin 04/01/2204/15 cream Irritation cyanocobalamin (vitamin B-12) 1,000 mcg IM .Q2W 04/15/23 04/15/23 1,000 mcg/mL injection solution Previous Rx's Medication Instructions Recorded insulin syringe-needle U-100 1 mL #100 ea 09/17/21 31 gauge x 5/16" (BD Insulin Syringe Ultra-Fine) Eliazar Hawkins #1 ea 09/23/21 sertraline 100 mg tablet 200 mg PO HS #180 tabs 07/28/22 metformin 500 mg tablet 500 mg PO BID #180 tabs 08/25/22 atorvastatin 40 mg tablet 40 mg PO HS #90 tabs 10/26/22 metoprolol tartrate 50 mg tablet 25 mg PO BID #90 tabs 02/11/23 Results & Data (ED) Vital Signs Vital Signs - 24 hr 04/15/23 18:57 04/15/23 18:57 04/15/23 18:59 Temperature 36.6 C Temperature Source Oral Pulse Rate 71 71 70 Pulse Rhythm Regular Respiratory Rate 20 22 Respiratory Effort / Characteristics Non-Labored Respiratory Depth Normal Blood Pressure 153/75 H Blood Pressure Mean 101 Pulse Oximetry 99 99 Oxygen Delivery Method Room Air Room Air Sepsis Recent Fever Within 48 Hours No Sepsis New/Unexplained Change in Mental Status N/A Sepsis Action Taken by Nursing No Action Required Home Medications Current Medication List: was personally reviewed by me Laboratory Data Attestation: I reviewed the patient's lab results. 04/15/23 18:56 04/15/23 18:56 Lab Results 04/15/23 04/15/23 Range/Units 18:56 18:56 WBC 13.13 H (4.8-10.8) K/ul RBC 3.82 L (4.20-5.40) M/uL Hgb 12.4 (12.0-16.0) g/dl Hct 35.6 L (37.0-47.0) % MCV 93.2 (80.0-100.0) fL MCH 32.5 (25.0-34.0) pg MCHC 34.8 (32.0-36.0) g/dL RDW Std Deviation 44.9 (36.4-46.3) fL RDW Coeff of Robert 13.2 (11.5-14.5) % Plt Count 344 (130-400) K/uL MPV 9.5 (9.4-12.4) fL Immature Gran % (Auto) 0.6 % Neut % (Auto) 76.1 % Lymph % (Auto) 15.5 % Morton % (Auto) 6.0 % Eos % (Auto) 1.0 % Baso % (Auto) 0.8 % Neut # (Auto) 10.00 H (1.40-6.50) K/uL Lymph # (Auto) 2.03 (1.2-3.4) K/uL Morton # (Auto) 0.79 H (0.11-0.59) K/uL Eos # (Auto) 0.13 (0-0.50) K/uL Baso # (Auto) 0.10 (0-0.2) K/uL Immature Gran # (Auto) 0.08 (0.01-0.20) K/uL Sodium 138 (136-145) mmol/L Potassium 3.4 L (3.5-5.1) mmol/L Chloride 103 (98-107) mmol/L Carbon Dioxide 22 (21-32) mmol/L Anion Gap 13 H (3-11) BUN 21 (6-23) mg/dl Creatinine 0.79 (0.6-1.2) mg/dl Est Cr Clr Drug Dosing 48.1 ml/min Est GFR ( Amer) 84.3 ml/min Est GFR (Non-Af Amer) 72.7 ml/min BUN/Creatinine Ratio 26.6 H (10-20) Glucose 137 H (70-99(Fasting)) mg/dl Calcium 9.5 (8.6-10.3) mg/dl Total Bilirubin 0.3 (0.2-1.0) mg/dl AST 17 (13-39) U/L ALT 15 (7-52) U/L Alkaline Phosphatase 104 (34-104) U/L Total Protein 6.8 (6.0-8.3) gm/dl Albumin 4.3 (3.4-5.0) gm/dl Globulin 2.5 (2.5-4.0) gm/dl Albumin/Globulin Ratio 1.7 (0.9-2) Lipase 29 (11-82) U/L Administered Medications Fentanyl Citrate (Fentanyl Citrate Pf 100 Mcg/2 Ml Vial) 50 mcg IV Q15M PRN PRN Reason: Pain Stop: 04/29/23 18:47 Last Admin: 04/15/23 20:29 Dose: 50 mcg Documented By: Admin: 04/15/23 18:58 Dose: 50 mcg Documented By: DASHA Discontinued Medications Sodium Chloride (Nss) 500 mls @ 999 mls/hr IV .Q31M STA Stop: 04/15/23 19:18 Last Infusion: 04/15/23 20:12 Dose: 0 mls/hr Documented By: Admin: 04/15/23 18:58 Dose: 999 mls/hr Documented By: DASHA Ondansetron HCl (Ondansetron Inj 2 Mg/Ml 2 Ml Vial) 4 mg IV NOW STA Stop: 04/15/23 18:49 Last Admin: 04/15/23 18:58 Dose: 4 mg Documented By: DASHA Imaging Data Attestation: I personally reviewed and interpreted this imaging study as follows: My Impression: 1 view chest x-ray was obtained in the emergency department. My interpretation is scoliosis of the thoracic spine, no definite infiltrate, no free air, right humerus fracture noted, final report pending X-rays of the right humerus were obtained. My interpretation is spiral fracture of the proximal shaft of the right humerus, there is no dislocation, final report pending 1 view x-ray of the pelvis was obtained in the emergency department. My interpretation is no acute fracture, final report pending. Radiologist's Impression: Cervical Spine CT 04/15/23 18:48 Exam(s): CT C SPINE EXAM: CT Cervical Spine Without Intravenous Contrast CLINICAL HISTORY: Reason for exam: trauma. TECHNIQUE: Axial computed tomography images of the cervical spine without intravenous contrast. CTDI is 22.92 mGy and DLP is 369.91 mGy-cm. Automated exposure control was utilized for the study. A dose lowering technique was utilized adhering to the principles of ALARA. COMPARISON: No relevant prior studies available. FINDINGS: The vertebral body heights are maintained. The craniocervical junction is intact. The atlanto-dens interval is maintained. The dens is intact. There is no spondylolisthesis. Multilevel cervical spondylosis and degenerative disc disease. Straightening of the cervical lordosis. The unenhanced neck soft tissues are grossly unremarkable. The visualized lung apices are grossly clear. IMPRESSION: No acute fracture or subluxation of the cervical spine. Electronically signed by: Andre York MD 04/15/23 20:[address] 04/15/23 18:48 Exam(s): CT HEAD Without Contrast EXAM: CT Head Without Intravenous Contrast CLINICAL HISTORY: Reason for exam: trauma. TECHNIQUE: Axial computed tomography images of the head/brain without intravenous contrast. Automated exposure control was utilized for the study. A dose lowering technique was utilized adhering to the principles of ALARA. COMPARISON: No relevant prior studies available. FINDINGS: No acute intracranial hemorrhage. No midline shift or mass effect. The territorial pritchard-white matter differentiation is maintained throughout. Age-related cerebral volume loss. Periventricular and subcortical white matter hypoattenuation, consistent with chronic microangiopathy. The visualized orbits appear grossly unremarkable. The calvarium is intact. The visualized paranasal sinuses and mastoid air cells are grossly clear. IMPRESSION: No acute intracranial hemorrhage, midline shift, or mass effect. Electronically signed by: Andre York MD 04/15/23 19:45 PM Discharge Plan Visit Data Chief Complaint: Fall Stated Complaint: FALL, R SHOULDER PAIN, BILAT. KNEE PAIN ED Provider: Edgardo Leija Discharge Problem: Closed right humeral fracture, Fall, Head injury Patient Disposition: Being Evaluated by Hospitalist Forms Stand Alone Forms: [facility] Prescriptions Prescriptions: No Action (DME) insulin syringe-needle U-100 [BD Insulin Syringe Ultra-Fine] 1 mL 31 gauge x 5/16 syringe See Rx Instructions .ROUTE .MEDSUPPLY Qty: 100 0RF Rx Instructions: USE TO INJECT B12 EVERY 2 WEEKS sertraline 100 mg tablet 200 mg PO HS Qty: 180 3RF metformin 500 mg tablet 500 mg PO BID Qty: 180 3RF atorvastatin 40 mg tablet 40 mg PO HS Qty: 90 3RF metoprolol tartrate 50 mg tablet 25 mg PO BID Qty: 90 3RF (DME) lancets [OneTouch Delica Lancets] 30 gauge misc See Rx Instructions .ROUTE .MEDSUPPLY Qty: 25 Rx Instructions: tests 1 time daily (DME) [facility] See Rx Instructions .Route Qty: 1 0RF Rx Instructions: As directed (DME) OneTouch Ultra Blue Test Strip Strip See Rx Instructions .ROUTE .MEDSUPPLY Rx Instructions: tests 1 time daily; pt states does PRN nystatin 100,000 unit/gram cream 1 applic topical BID PRN (Reason: Skin Irritation) (DME) Walking Cane [facility] See Rx Instructions .Route Rx Instructions: As directed naproxen sodium 220 mg tablet 220 mg PO Q8H PRN (Reason: pain) cyanocobalamin (vitamin B-12) 1,000 mcg/mL solution 1,000 mcg IM .Q2W Referrals Referrals: Hunter Padilla DO [Primary Care Provider] -
[2023-04-15] MEDS: fentaNYL citrate PF 100 MCG/2 ML VIAL IV PRN ×3 (18:58→21:46)
[2023-04-15 19:11] LABS: Basophils % (auto) 0.8 %; Eosinophils # (auto) 0.13 K/uL (0-0.50); Hematocrit (blood only) 35.6 % (37.0-47.0); Hemoglobin 12.4 g/dl (12.0-16.0); Immature Granulocytes # (auto) 0.08 K/uL (0.01-0.20); Immature Granulocytes % (auto) 0.6 %; Lymphocytes # (auto) 2.03 K/uL (1.2-3.4); Lymphocytes % (auto) 15.5 %; Mean Corpuscular Hemoglobin 32.5 pg (25.0-34.0); Mean Corpuscular Hgb Conc 34.8 g/dL (32.0-36.0); Mean Corpuscular Volume 93.2 fL (80.0-100.0); Mean Platelet Volume 9.5 fL (9.4-12.4); Monocytes # (auto) 0.79 K/uL (0.11-0.59); Neutrophils % (auto) 76.1 %; Platelet Count 344 K/uL (130-400); RDW Coefficient of Variation 13.2 % (11.5-14.5); RDW Standard Deviation 44.9 fL (36.4-46.3); Red Blood Count 3.82 M/uL (4.20-5.40); White Blood Count 13.13 K/ul (4.8-10.8)
[2023-04-15 19:28] LABS: Albumin Globulin Ratio 1.7 (0.9-2); Albumin Level 4.3 gm/dl (3.4-5.0); BUN Creatinine Ratio 26.6 (10-20); Bilirubin,Total 0.3 mg/dl (0.2-1.0); Calcium 9.5 mg/dl (8.6-10.3); Creatinine Clr Calc Pharmacy 48.1 ml/min; Est GFR (African American) 84.3 ml/min; Est GFR (Non-African American) 72.7 ml/min; Globulin 2.5 gm/dl (2.5-4.0); Potassium 3.4 mmol/L (3.5-5.1); Total Protein 6.8 gm/dl (6.0-8.3)
--- NOTE | 2023-04-15 19:46 | CT Scan Report ---
Exam(s): CT HEAD Without Contrast EXAM: CT Head Without Intravenous Contrast CLINICAL HISTORY: Reason for exam: trauma. TECHNIQUE: Axial computed tomography images of the head/brain without intravenous contrast. Automated exposure control was utilized for the study. A dose lowering technique was utilized adhering to the principles of ALARA. COMPARISON: No relevant prior studies available. FINDINGS: No acute intracranial hemorrhage. No midline shift or mass effect. The territorial pritchard-white matter differentiation is maintained throughout. Age-related cerebral volume loss. Periventricular and subcortical white matter hypoattenuation, consistent with chronic microangiopathy. The visualized orbits appear grossly unremarkable. The calvarium is intact. The visualized paranasal sinuses and mastoid air cells are grossly clear. IMPRESSION: No acute intracranial hemorrhage, midline shift, or mass effect. Electronically signed by: Andre York MD 04/15/23 19:45 PM
--- NOTE | 2023-04-15 20:02 | CT Scan Report ---
Exam(s): CT C SPINE EXAM: CT Cervical Spine Without Intravenous Contrast CLINICAL HISTORY: Reason for exam: trauma. TECHNIQUE: Axial computed tomography images of the cervical spine without intravenous contrast. CTDI is 22.92 mGy and DLP is 369.91 mGy-cm. Automated exposure control was utilized for the study. A dose lowering technique was utilized adhering to the principles of ALARA. COMPARISON: No relevant prior studies available. FINDINGS: The vertebral body heights are maintained. The craniocervical junction is intact. The atlanto-dens interval is maintained. The dens is intact. There is no spondylolisthesis. Multilevel cervical spondylosis and degenerative disc disease. Straightening of the cervical lordosis. The unenhanced neck soft tissues are grossly unremarkable. The visualized lung apices are grossly clear. IMPRESSION: No acute fracture or subluxation of the cervical spine. Electronically signed by: nAdre York MD 04/15/23 20:00 PM
--- NOTE | 2023-04-15 21:22 | History & Physical Report ---
Date of Service April 15, 2023 Assessment & Plan (1) Closed right humeral fracture: Plan: -R humerus XR with spiral fracture of proximal humerus, currently without neurovascular compromise -Pt hemodynamically stable at present -Sling applied in ER -Pain control- Tylenol IV, morphine PRN -PT/OT consulted -Orthopedics consulted, awaiting recommendations (2) Fall: Plan: -Mechanical fall w/o other traumatic injury except as above -CXR, pelvic XR unremarkable -PT/OT consulted (3) Head injury: Plan: -Head strike with no LOC -Head CT unremarkable -Monitor mental status (4) DM type 2 (diabetes mellitus, type 2): Plan: -Well-controlled, A1C 6.2% in 12/2022 -Hold home metformin -Will order basal/bolus insulin once pt tolerating diet- currently NPO (5) Hypertension: Plan: -Continue metoprolol -BP elevations on admission mild and likely 2/2 pain (6) Hyperlipidemia: Plan: -Continue atorvastatin (7) Depression: Plan: -Continue Zoloft (8) Hypokalemia: Plan: -K 3.3 on admission -Repleted in ER -Monitor BMP (9) Osteoporosis: Plan: -Known history of osteoporosis on vit D supplementation in past -F/u on vit D supplementation as outpatient (10) Leukocytosis: Plan: -WBC 13 on admission -Mild, likely stress demargination rather than acute infection -Monitor WBC Plan FENGI: NPO midnight for potential OR in AM Code status: Full DVT ppx: SCDs, deferring chemoprophylaxis for potential OR Isolation: None Dispo: Medical/surgical History of Present Illness Chief Complaint: fall Primary Care Provider: Hunter Padilla DO Pt is 77 yo F with PMH HTN, osteoporosis, HLD, depression, DM2 presenting with R arm pain after fall. Pt had been chasing her cat earlier this evening and fell on ground, slipping and landing on R side. She did land on her R arm and also struck her knees along with her head but did not lose consciousness. She did not have any recent symptoms such as dizziness or lightheadedness preceding her fall. She had immediate severe pain and was unable to stand. She was later brought to ER by family. Pt arrived to ER hemodynamically stable. Initial evaluation significant for K 3.2. ER interventions include intranasal fentanyl, Zofran, 0.5L NSS bolus. XR imaging of RUE revealed spiral fracture of proximal humerus. A splint was applie d to her R arm. At present, pt reports continued pain but no numbness, weakness. Allergies Allergy/AdvReac Type Severity Reaction Status Date / Time doxycycline Allergy Intermediate GI UPSET Verified 04/15/23 20:32 AND DIZZINESS Sulfa (Sulfonamide Allergy Intermediate HIVES Verified 04/15/23 20:32 Antibiotics) hydrocortisone Allergy Mild RASH Verified 04/15/23 20:32 cefuroxime Allergy Unknown PT DOES Verified 04/15/23 20:32 NOT REMEMBER REACTION Home Medications Medication Instructions Recorded Confirmed Type lancets 30 gauge (OneTouch Delica #25 ea 03/04/20 01/14/23 History Lancets) naproxen sodium 220 mg tablet 220 mg PO Q8H PRN pain 12/05/20 04/15/23 History insulin syringe-needle U-100 1 mL #100 ea 09/17/21 01/14/23 Rx 31 gauge x 5/16" (BD Insulin Syringe Ultra-Fine) Wheeled Walker #1 ea 09/23/21 01/14/23 Rx Walking Cane 04/01/22 01/14/23 History blood sugar diagnostic (OneTouch 04/01/22 01/14/23 History Ultra Blue Test Strip) nystatin 100,000 unit/gram topical 1 applic topical BID PRN Skin 04/01/22 04/15/23 History cream Irritation sertraline 100 mg tablet 200 mg PO HS #180 tabs 07/28/22 04/15/23 Rx metformin 500 mg tablet 500 mg PO BID #180 tabs 08/25/22 04/15/23 Rx atorvastatin 40 mg tablet 40 mg PO HS #90 tabs 10/26/22 04/15/23 Rx metoprolol tartrate 50 mg tablet 25 mg PO BID #90 tabs 02/11/23 04/15/23 Rx cyanocobalamin (vitamin B-12) 1,000 mcg IM .Q2W 04/15/23 04/15/23 History 1,000 mcg/mL injection solution Past Med/Surg History Medical History Depression DM type 2 (diabetes mellitus, type 2) GERD (gastroesophageal reflux disease) Hypertension Mild cognitive disorder Obstructive sleep apnea Osteoporosis Vitamin B12 deficiency Vitamin D deficiency Surgical History H/O breast surgery H/O dilation and curettage H/O foot surgery H/O oral surgery H/O sinus surgery History of tonsillectomy and adenoidectomy History of tubal ligation S/P cataract surgery Family History Father Hypertension Stroke syndrome Diabetes Colon cancer Acute myocardial infarction Myocardial infarction Colorectal cancer Stroke Mother Diabetes Heart disease Grandmother Breast cancer Colon cancer Colorectal cancer Denies family history of Ovarian cancer Prostate cancer Lung cancer Social History Smoking Status: Former smoker Smoking End Date: 60 YEARS AGO PT SMOKED FOR A MONTH; Second Hand Exposure: No; Do You Dip or Chew Tobacco: No; Hx Alcohol Use: Yes Alcohol type: beer Alcohol Intake Frequency: Monthly or Less Hx Substance Use: No Preferred Language: Yemeni Communication Ability: Effective Visual Impairment: Diminished Hearing Ability: Normal Machine Maintenance Supervisor Required: No Beliefs That Will Affect Care: Muslim Muslim Beliefs: DENOMINATIONAL/MANDAEN marital status: Current Living Situation: Alone current occupational status: retired How many Children do You have: 1 Feels Safe at Home: Yes Safety Concerns: Feels Safe At This Time Childhood Exposure to Second-Hand Smoke: Yes Diet: diabetic caffeine: Yes Dental Care, Regularly: Yes Physical Activity Frequency: Does not Exercise Physical Activity Frequency Comment: limited due to physical condition Seatbelt Use: always Sunscreen Use: Yes Do you think of yourself as: straight/heterosexual Assistive Devices: Cane Review of Systems Review of Systems: Per HPI/Subjective Physical Exam Physical Exam: General: well-appearing, no acute distress HEENT: PERRL, EOMI, conjunctivae clear without injection, anicteric sclerae, moist mucous membranes, clear oropharynx without exudate or erythema Neck: supple, trachea midline, no thyromegaly, no JVD, no cervical lymphadenopathy CV: RRR, normal S1 and S2, no murmurs Resp: CTAB, no increased work of breathing, no crackles or wheezes Abd: Soft, nontender, nondistended, no guarding or rebound, no hepatosplenomegaly MSK: Normal bulk of all four extremities. RUE in sling, ROM testing deferred Neuro: AOx3, no focal motor or sensory deficits. UE sensorium intact b/l, intact repairer controller tester strength 5/5 b/l Skin: no rashes or lesions, warm and dry Ext: no LE peripheral edema or erythema, capillary refill <2s in all four extremities, 2+ LE peripheral pulses b/l Results & Data Results & Data Vital Signs (Past 12 Hours) Vital Signs Temp Pulse Resp BP Pulse Ox O2 Del Method 04/15/23 18:59 70 04/15/23 18:57 71 22 99 Room Air 04/15/23 18:57 36.6 C 71 20 153/75 H 99 Room Air Code Status & VTE Plan VTE Prophylaxis Plan VTE Prophylaxis will be ordered: Yes Supervising Physician Co-Signing Physician Notes Attending addendum: I have physically seen this patient, have supervised the medical residents activities, and agree with the H&P unless as otherwise noted. Assessment and Plan: Closed right humerus fracture- N.p.o. after midnight Mechanical fall Tylenol 1 g IV every 8 hours as needed mild pain or fever Morphine sulfate 2 mg IV every 4 hours as needed moderate to severe pain Consult orthopedic surgery Diabetes mellitus- Hold metformin Placed on Accu-Cheks with NovoLog scale Hypertension- Continue metoprolol with hold parameters Hyperlipidemia- Continue atorvastatin Remaining orders and notations as noted Resident Activity Tracking Resident Involvement: Resident Care Provided Care Provided: Adult Hospital Medicine (1) Closed right humeral fracture Encounter type: initial encounter Fracture alignment: displaced Humerus Location: proximal (2) Fall Encounter type: initial encounter Qualified Code(s): W19.XXXA - Unspecified fall, initial encounter (3) Head injury Encounter type: initial encounter Qualified Code(s): S09.90XA - Unspecified injury of head, initial encounter
[2023-04-16] MEDS ORDERED: HYDROmorphone INJ 0.5 MG/0.5 ML SYR IV PRN (00:07)
[2023-04-16] MEDS ORDERED: DEXTROSE 50% 50 ML SYRINGE IV PRN (00:07)
[2023-04-16] MEDS ORDERED: MoRPHine SULFATE 2 MG/ML CARP IV PRN (00:07)
[2023-04-16] MEDS ORDERED: GLUCOSE 10 TAB/TUBE PO PRN (00:07)
[2023-04-16] MEDS ORDERED: GLUCOSE 40% GEL 15 GM TUBE PO PRN (00:07)
[2023-04-16] MEDS ORDERED: GLUCAGON FOR INJ 1 MG VIAL SQ PRN (00:07)
[2023-04-16] MEDS ORDERED: POTASSIUM CHLORIDE CRTAB 20 MEQ TABCR PO STA (00:07)
[2023-04-16] MEDS ORDERED: CARBOHYDRATES FOR HYPOGLYCEMIA PO PRN (00:07)
[2023-04-16] MEDS: ACETAMINOPHEN 1,000 MG/100 ML VIAL IV PRN (00:38)
--- NOTE | 2023-04-16 07:00 | XRay Report ---
XR chest 1V portable CLINICAL HISTORY: Fall. COMPARISON STUDY: Chest CT November 01, 2016. Chest radiograph April 19, 2017. FINDINGS: There is no pneumothorax or pleural effusion. Mild cardiomegaly is noted. There is no evide nce for pulmonary edema. There is a probable hiatal hernia. There is an acute oblique displaced fract ure of the proximal shaft of the right humerus. IMPRESSION: 1. No acute cardiopulmonary findings. 2. Acute oblique displaced fracture of the proximal shaft of the right humerus. ACT 112: Negative or not required by law. Electronically signed by: Alex Kendrick M.D. 04/16/2023 6:58 AM
--- NOTE | 2023-04-16 07:02 | XRay Report ---
XR pelvis 1-2V routine CLINICAL HISTORY: Fall. COMPARISON: Left hip radiographs June 11, 2019. Pelvis radiograph April 19, 2017. FINDINGS: Sacroiliac joints and symphysis pubis are intact. There is no acute fracture within the pe lvis or hips. IMPRESSION: No acute fracture within the pelvis or hips. ACT 112: Negative or not required by law. Electronically signed by: Alex Kendrick M.D. 04/16/2023 7:01 AM
--- NOTE | 2023-04-16 07:04 | XRay Report ---
XR humerus RT 2V CLINICAL HISTORY: Fall. COMPARISON: Right shoulder radiographs December 24, 2009. FINDINGS: Note is made of an acute oblique moderately displaced fracture of the proximal diaphysis o f the right humerus. Fracture extends to the humeral neck. No distal right humeral fracture is presen t. Alignment of the right elbow and shoulder appears anatomic. IMPRESSION: Acute oblique displaced fracture of the proximal shaft of the right humerus. ACT 112: Negative or not required by law. Electronically signed by: Alex Kendrick M.D. 04/16/2023 7:02 AM
[2023-04-16 07:33] LABS: Hematocrit (blood only) 30.2 % (37.0-47.0); Hemoglobin 10.4 g/dl (12.0-16.0); Mean Corpuscular Hgb Conc 34.4 g/dL (32.0-36.0); Mean Corpuscular Volume 92.9 fL (80.0-100.0); Mean Platelet Volume 9.7 fL (9.4-12.4); Platelet Count 270 K/uL (130-400); RDW Coefficient of Variation 13.2 % (11.5-14.5); RDW Standard Deviation 45.1 fL (36.4-46.3); Red Blood Count 3.25 M/uL (4.20-5.40); White Blood Count 9.15 K/ul (4.8-10.8)
[2023-04-16 07:51] LABS: BUN Creatinine Ratio 24.6 (10-20); Calcium 8.8 mg/dl (8.6-10.3); Creatinine Clr Calc Pharmacy 54.2 ml/min; Est GFR (Non-African American) 84.6 ml/min; Potassium 4.4 mmol/L (3.5-5.1)
[2023-04-16] MEDS: METOPROLOL TARTRATE 25 MG TAB PO SCH ×2 (07:52→21:21)
--- NOTE | 2023-04-16 14:12 | Hospitalist Progress Note ---
Date of Service April 16, 2023 Assessment & Plan (1) Closed right humeral fracture: Plan: Acute/unstable - moderate to high risk - R humerus XR with spiral fracture of proximal humerus, currently without neurovascular compromise - Continue sling applied in ER - Pain control- Tylenol IV and add Tramadol - PT/OT consulted - pt does live alone - Orthopedics consulted, awaiting recommendations - was kept NPO until seen by ortho - D/w Dr. Rush, will be nonop management, will order diet - Await therapy evals to determine dispo - anticipate inpatient rehab - Will need to f/u with ortho as outpatient in 1-2 weeks with repeat x-rays and specialized fitted brace - Still on IV Dilaudid for breakthrough pain which poses high risk to patient (2) Fall: Plan: Acute/unstable - high risk - Mechanical fall w/o other traumatic injury except as above, recurrent - CXR, pelvic XR unremarkable - PT/OT consulted - May require short term rehab as she lives alone (3) Head injury: Plan: Acute/stable - - Head strike with no LOC - Head CT unremarkable - Monitor mental status (4) DM type 2 (diabetes mellitus, type 2): Plan: Chronic/stable - - Well-controlled, A1C 6.2% in 12/2022 - Ordered diabetic diet and reordered Metformin (5) Hypertension: Plan: Chronic/stable - BP well controlled presently on current regimen of Metoprolol (6) Depression: Plan: Chronic/stable - Continue Zoloft (7) Hypokalemia: Plan: Acute/stable - resolved - K 3.3 on admission - Repleted in ER - BMP this morning reviewed, potassium is WNL at 4.4 (8) Leukocytosis: Plan: Acute/unstable - resolved - WBC 13 on admission - Mild, likely stress demargination rather than acute infection - Repeat CBC reviewed today, WBC WNL at 9.15 Plan Also d/w Armando Prakash PA-C and Dr. Rush, appreciate assistance. DVT ppx will be added with Lovenox. Await therapy evals to determine dispo. Above plan of care has been d/w Dr. Drew. Admission and Anticipated Discharge Date Admission Date: April 15, 2023 Subjective Patient was seen on daily rounds this morning. She was hospitalized after sustaining a mechanical fall (lost her footing while walking outside) and fell landing on her R arm/shoulder. She was found to have an acute displaced oblique humerus fracture for which orthopedics has been consulted. Currently she is accompanied by a friend, denies h/o blood clots, denies chest pain, dyspnea, n/v/d, f/c, headache, or gu symptoms. Physical Exam Physical Exam: GENERAL: 77 yo well-developed, well-nourished elderly F. AAOx4. NAD. LUNGS: Clear to auscultation bilaterally w/o W/R/R. CARDIOVASCULAR: Regular rate and rhythm EXTREMITIES: No edema. Non-tender. Peripheral pulses +2/4. R arm in sling, NV intact. Sensation intact. Results & Data Results & Data Vital Signs (Past 12 Hours) Vital Signs Temp Pulse Resp BP Pulse Ox O2 Del Method 04/16/23 07:38 36.8 C 74 18 124/76 96 Room Air Laboratory Results 04/16/23 06:27 04/16/23 06:27 PG Care Time/CCT Total # of Minutes Spent Total Time Spent with Patient: Total time spent is greater than 50% in coordination of care (as documented) at patient's floor/unit and/or counseling patient: Coding Level of Care Code 24385 SUB INP/OBS CARE 3/50MIN Diagnoses Closed right humeral fracture S42.301A Encounter type: initial encounter Fracture alignment: displaced Humerus Location: proximal Fall W19.XXXA Encounter type: initial encounter Head injury S09.90XA Encounter type: initial encounter DM type 2 (diabetes mellitus, type 2) E11.9 Hypertension I10 Depression F32.9 Hypokalemia E87.6 Leukocytosis D72.829 (1) Closed right humeral fracture Encounter type: initial encounter Fracture alignment: displaced Humerus Location: proximal (2) Fall Encounter type: initial encounter Qualified Code(s): W19.XXXA - Unspecified fall, initial encounter (3) Head injury Encounter type: initial encounter Qualified Code(s): S09.90XA - Unspecified i njury of head, initial encounter
--- NOTE | 2023-04-16 14:35 | Orthopedic Consultation ---
Date of Service April 16, 2023 Assessment & Plan (1) Closed right humeral fracture: -XRs reviewed w/ Dr. Rush. Recommend conservative management. No acute surgical intervention. -She will need to remain immobilized at the shoulder for around 6-8 weeks. Keep sling and splint in place for now. Can transition to sling with a clam-shell shoulder brace as an outpatient. -OK to remove arm from sling periodically through the day for gentle assisted AROM at the wrist and elbow to prevent excess stiffness. -Pain control w/ PO tylenol, tramadol; IV dilaudid for breakthrough pain -Recommend PT/OT evaluation and care while admitted. -Rest of care per Medicine team. Dispo: Needs PT/OT evaluation for disposition planning. Anticipate need for inpatient rehab. Will need to follow up with Dr. Rush in clinic in 7-10 days for repeat XRs. Available for any questions while admitted. Discussed w/ Dr. Rush. History of Present Illness Reason for Consultation: R proximal humerus fracture . Requesting Physician: Navi Drew MD Attending Physician: Navi Drew MD Pt is a 77 y/o/f with PMHx of HTN, osteoporosis, HLD, depression, DM2 who is admitted after suffering a mechanical fall at her home yesterday. She was outside chasing her cat when she lost her balance and fell onto her right side. She had immediate right arm/shoulder pain after the fall. She did not lose consciousness. She was taken to [facility] ED for evaluation where imaging was obtained that showed an acute mildly displaced spiral fracture to the right proximal humerus. No additional bony injuries noted on imaging. She was placed in a splint and sling. We are consulted for management of the fracture Seen at bedside with family present. She is in minimal pain at rest. No numbness in the right arm/hand. She notes that she is right hand dominant; uses a cane to ambulate with her right hand typically. She does live alone. Allergies Allergy/AdvReac Type Severity Reaction Status Date / Time doxycycline Allergy Intermediate GI UPSET Verified 04/15/23 20:32 AND DIZZINESS Sulfa (Sulfonamide Allergy Intermediate HIVES Verified 04/15/23 20:32 Antibiotics) hydrocortisone Allergy Mild RASH Verified 04/15/23 20:32 cefuroxime Allergy Unknown PT DOES Verified 04/15/23 20:32 NOT REMEMBER REACTION Home Medications Medication Instructions Recorded Confirmed Type lancets 30 gauge (StephTouch Delica #25 ea 03/04/20 01/14/23 History Lancets) naproxen sodium 220 mg tablet 220 mg PO Q8H PRN pain 12/05/20 04/15/23 History insulin syringe-needle U-100 1 mL #100 ea 09/17/21 01/14/23 Rx 31 gauge x 5/16" (BD Insulin Syringe Ultra-Fine) Wheeled Walker #1 ea 09/23/21 01/14/23 Rx Walking Cane 04/01/22 01/14/23 History blood sugar diagnostic (StephTouch 04/01/22 01/14/23 History Ultra Blue Test Strip) nystatin 100,000 unit/gram topical 1 applic topical BID PRN Skin 04/01/22 04/15/23 History cream Irritation sertraline 100 mg tablet 200 mg PO HS #180 tabs 07/28/22 04/15/23 Rx metformin 500 mg tablet 500 mg PO BID #180 tabs 08/25/22 04/15/23 Rx atorvastatin 40 mg tablet 40 mg PO HS #90 tabs 10/26/22 04/15/23 Rx metoprolol tartrate 50 mg tablet 25 mg PO BID #90 tabs 02/11/23 04/15/23 Rx cyanocobalamin (vitamin B-12) 1,000 mcg IM .Q2W 04/15/23 04/15/23 History 1,000 mcg/mL injection solution Past Med/Surg History Medical History Depression DM type 2 (diabetes mellitus, type 2) GERD (gastroesophageal reflux disease) Hypertension Mild cognitive disorder Obstructive sleep apnea Osteoporosis Vitamin B12 deficiency Vitamin D deficiency Surgical History H/O breast surgery H/O dilation and curettage H/O foot surgery H/O oral surgery H/O sinus surgery History of tonsillectomy and adenoidectomy History of tubal ligation S/P cataract surgery Family History Father Hypertension Stroke syndrome Diabetes Colon cancer Acute myocardial infarction Myocardial infarction Colorectal cancer Stroke Mother Diabetes Heart disease Grandmother Breast cancer Colon cancer Colorectal cancer Denies family history of Ovarian cancer Prostate cancer Lung cancer Social History Smoking Status: Former smoker Smoking End Date: 60 YEARS AGO PT SMOKED FOR A MONTH; Second Hand Exposure: No; Do You Dip or Chew Tobacco: No; Hx Alcohol Use: Yes Alcohol type: beer Alcohol Intake Frequency: Monthly or Less Hx Substance Use: No Preferred Language: Romanian Communication Ability: Effective Visual Impairment: Diminished Hearing Ability: Normal Parts Puller Required: No Beliefs That Will Affect Care: Judaism Judaism Beliefs: PRESYBETERIAN/CHURCH marital status: Current Living Situation: Alone current occupational status: retired How many Children do You have: 1 Feels Safe at Home: Yes Safety Concerns: Feels Safe At This Time Childhood Exposure to Second-Hand Smoke: Yes Diet: diabetic caffeine: Yes Dental Care, Regularly: Yes Physical Activity Frequency: Does not Exercise Physical Activity Frequency Comment: limited due to physical condition Seatbelt Use: always Sunscreen Use: Yes Do you think of yourself as: straight/heterosexual Assistive Devices: Cane Review of Systems All systems reviewed & are unremarkable except as noted in HPI & below. Physical Exam General: Pleasant 77 y/o/f resting in bed comfortably in NAD. AAO x 4. RUE: Splint left in place for examination. She has mild edema in the right hand, no tenderness. Mild tenderness at the right shoulder. Distally NVI. Full wrist and finger ROM, mild edema in the hand and fingers. Results & Data Results & Data Laboratory Results Reviewed . Diagnostic Findings XR's reviewed. Agree that there is an acute displaced oblique/spiral fracture to the R proximal humerus. Pelvis XRs negative for fracture. CXR negative for injury. CT head negative . PG Care Time/CCT Total # of Minutes Spent Total Time Spent with Patient: Total time spent is greater than 50% in coordination of care (as documented) at patient's floor/unit and/or counseling patient: Supervising Physician Co-Signing Physician Notes I evaluated Kaycee in person and have evaluated the radiographs. I agree with the consultation note. The coaptation splint is adequate. We will change her out to a Curry brace in clinic. This fracture pattern is likely amenable to nonsurgical treatment. Continue nonweightbearing, splint and a sling to be used for comfort. Coding Level of Care Code 30265 IN/OBS CONSULT LVL 4,60M Diagnoses Closed right humeral fracture S42.301A Encounter type: initial encounter Fracture alignment: displaced Humerus Location: proximal (1) Closed right humeral fracture Encounter type: initial encounter Fracture alignment: displaced Humerus Location: proximal
[2023-04-16] MEDS ORDERED: Nursing to Pharmacy Communication SCH (15:30)
[2023-04-16] MEDS: ENOXAPARIN INJ 40 MG/0.4 ML SYR SQ SCH (16:45)
[2023-04-16] MEDS: metFORMIN HCL 500 MG TAB PO SCH (16:46)
[2023-04-16] MEDS: traMADol HCL 50 MG TABLET PO PRN ×2 (16:55→21:21)
--- NOTE | 2023-04-16 21:21 | Billing Data ---
Date of Service April 16, 2023 Coding Level of Care Code 12210 INT INP/OBS CARE
[2023-04-16] MEDS: SERTRALINE HCL 100 MG TABLET PO SCH (21:22)
[2023-04-16] MEDS: ATORVASTATIN 40 MG TAB PO SCH (21:22)
[2023-04-16] MEDS: TAMSULOSIN HCL 0.4 MG CAP PO SCH (21:22)
[2023-04-17] MEDS: ACETAMINOPHEN 1,000 MG/100 ML VIAL IV PRN (06:05)
[2023-04-17] MEDS: metFORMIN HCL 500 MG TAB PO SCH ×2 (07:34→17:28)
[2023-04-17] MEDS: traMADol HCL 50 MG TABLET PO PRN ×2 (07:34→12:45)
[2023-04-17] MEDS: METOPROLOL TARTRATE 25 MG TAB PO SCH ×2 (07:34→20:56)
[2023-04-17] MEDS: ENOXAPARIN INJ 40 MG/0.4 ML SYR SQ SCH (07:35)
--- NOTE | 2023-04-17 09:31 | Hospitalist Progress Note ---
Date of Service April 17, 2023 Assessment & Plan (1) Closed right humeral fracture: Plan: -R humerus XR with spiral fracture of proximal humerus, currently without neurovascular compromise -Pt hemodynamically stable at present -Sling applied in ER -Pain control- Tylenol IV, morphine PRN -PT/OT evaluated and recommend rehab -Orthopedics consulted and recommended conservative management -immobilized at the shoulder for around 6-8 weeks. Keep sling and splint in place for now. Can transition to sling with a clam-shell shoulder brace as an outpatient. -OK to remove arm from sling periodically through the day for gentle assisted AROM at the wrist and elbow to prevent excess stiffness. -Continue Pain control w/ PO tylenol, tramadol; IV dilaudid for breakthrough pain -Will need follow up with Dr [facility] in 7-10 days for repeat xrays - Case management going to work on getting patient set up with possible SNF rehab (2) Fall: Plan: -Mechanical fall w/o other traumatic injury except as above -CXR, pelvic XR unremarkable -PT/OT following (3) Head injury: Plan: -Head strike with no LOC -Head CT unremarkable -Monitor mental status (4) DM type 2 (diabetes mellitus, type 2): Plan: -Well-controlled, A1C 6.2% in 12/2022 -Hold home metformin -Will order basal/bolus insulin once pt tolerating diet- currently on carb consistent diet (5) Hypertension: Plan: -Continue metoprolol -BP elevations on admission mild and likely 2/2 pain (6) Hyperlipidemia: Plan: -Continue atorvastatin (7) Depression: Plan: -Continue Zoloft (8) Hypokalemia: Plan: -K 3.3 on admission -Repleted in ER -Monitor BMP (9) Osteoporosis: Plan: -Known history of osteoporosis on vit D supplementation in past -F/u on vit D supplementation as outpatient -Possibly fracture secondary to osteoporosis (10) Leukocytosis: Plan: -WBC 13 on admission improved to 9.15 -Mild, likely stress demargination rather than acute infection -Monitor WBC Plan FENGI: NPO midnight for potential OR in AM Code status: Full DVT ppx: SCDs, early ambulation Isolation: None Dispo: Medical/surgical Admission and Anticipated Discharge Date Admission Date: April 15, 2023 Subjective Patient was seen on daily rounds this morning. She was hospitalized after sustaining a mechanical fall (lost her footing while walking outside) and fell landing on her R arm/shoulder. She was found to have an acute displaced oblique humerus fracture for which orthopedics has been consulted and recommended conservative management with immobilization x -8 weeks. PT/OT completed their initail evaluation 04/16 and recommend rehab CM to meet with patient later today and discuss rehab Review of Systems Review of Systems: Patient denies any chest pain, SOB, Nausea vomiting, cough, congestion. She denies any paresthesias or anesthesias. Musculoskeletal: swelling right hand but improved with ice, pain to right arm Integumentary: no rash, no lesions and no new lesions Physical Exam Constitutional: WD/WN, vitals as above Neck: trachea midline, no thyromegaly Respiratory: normal respiratory effort, lungs clear to auscultation Cardiovascular: RRR, no murmur, no edema Gastrointestinal (Abdomen): normal bowel sounds, soft, nontender, no hepatosplenomegaly Musculoskeletal: right arm in immobilizer sling, intact pulses and sensation Psychiatric: Orientation: alert, oriented to person and oriented to place Results & Data Results & Data Vital Signs (Past 12 Hours) Vital Signs Temp Pulse Resp BP Pulse Ox O2 Del Method 04/17/23 07:57 36.8 C 71 14 112/69 93 Room Air Laboratory Results Abnormal lab results 04/16/23 04/16/23 04/17/23 Range/Units 17:06 20:35 06:04 POC Glucose 158 H 107 H 131 H (70-99) mg/dl Urine Ketones (Negative) 04/17/23 04/17/23 Range/Units 08:01 10:33 POC Glucose 143 H (70-99) mg/dl Urine Ketones Trace H (Negative) PG Care Time/CCT Total # of Minutes Spent Total Time Spent with Patient: Total time spent is greater than 50% in coordination of care (as documented) at patient's floor/unit and/or counseling patient: Coding Level of Care Code 87190 SUB INP/OBS CARE 12/16MIN Diagnoses Closed right humeral fracture S42.301A Encounter type: initial encounter Fracture alignment: displaced Humerus Location: proximal Fall W19.XXXA Encounter type: initial encounter Head injury S09.90XA Encounter type: initial encounter DM type 2 (diabetes mellitus, type 2) E11.9 Hypertension I10 Hyperlipidemia E78.5 Depression F32.9 Hypokalemia E87.6 Osteoporosis M81.0 Leukocytosis D72.829 (1) Closed right humeral fracture Encounter type: initial encounter Fracture alignment: displaced Humerus Location: proximal (2) Fall Encounter type: initial encounter Qualified Code(s): W19.XXXA - Unspecified fall, initial encounter (3) Head injury Encounter type: initial encounter Qualified Code(s): S09.90XA - Unspecified injury of head, initial encounter
[2023-04-17] MEDS ORDERED: ACETAMINOPHEN 325 MG TAB PO PRN (10:00)
[2023-04-17 11:04] LABS: Appearance Urine Clear (Clear); Bilirubin Urine Negative (Negative); Blood Urine Negative (Negative); Color Urine Yellow; Glucose Urine UA Negative (Negative); Ketones Urine Trace (Negative); Leukocyte Esterase Urine Negative (Negative); Nitrite Urine Negative (Negative); Protein Urine Negative (Negative); Specific Gravity Urine 1.027 (1.000-1.030); Urobilinogen Urine Negative (Negative); pH Urine 5.5 (4.5-7.5)
--- NOTE | 2023-04-17 13:35 | Orthopedic Progress Note ---
Date of Service April 17, 2023 Assessment & Plan (1) Closed right humeral fracture: No changes to the plan of care. Continue pain management. Should be seen in our clinic in 1 to 2 weeks to transition to a Curry brace and repeat x-rays. Nonweightbearing to the RUE. Range of motion of the digits and wrist as tolerated. Subjective Patient reports continued pain but getting used to it. The sling is not causing any issues. Splint is comfortable. Notices hand swelling, as expected. Review of Systems All systems reviewed & are unremarkable except as noted in HPI & below. Physical Exam RLE: Dorsal hand swelling as expected. Splint is clean dry and intact. The sling seems to be well fit. Positive WE/WF/FE/FF. DNVI. Constitutional WD/WN, vitals as above no acute distress and not intoxicated appearing Respiratory normal respiratory effort; no labored breathing Cardiovascular Extremities: normal capillary refill Results & Data Results & Data Laboratory Results . Diagnostic Findings . PG Care Time/CCT Total # of Minutes Spent Total Time Spent with Patient: Total time spent is greater than 50% in coordination of care (as documented) at patient's floor/unit and/or counseling patient: Coding Level of Care Code 49350 Post Operative Follow-Up Diagnoses Closed right humeral fracture S42.301A Encounter type: initial encounter Fracture alignment: displaced Humerus Location: proximal (1) Closed right humeral fracture Encounter type: initial encounter Fracture alignment: displaced Humerus Location: proximal
[2023-04-17] MEDS ORDERED: MoRPHine SULFATE 2 MG/ML CARP IV PRN (16:36)
[2023-04-17] MEDS: ACETAMINOPHEN 325 MG TAB PO SCH ×2 (17:28→23:07)
[2023-04-17] MEDS ORDERED: ACETAMINOPHEN 325 MG TAB PO SCH ×2 (18:00)
[2023-04-17] MEDS: ATORVASTATIN 40 MG TAB PO SCH (20:55)
[2023-04-17] MEDS: SERTRALINE HCL 100 MG TABLET PO SCH (20:56)
[2023-04-17] MEDS: TAMSULOSIN HCL 0.4 MG CAP PO SCH (20:56)
[2023-04-18] MEDS: ACETAMINOPHEN 325 MG TAB PO SCH ×4 (06:01→23:33)
[2023-04-18] MEDS: metFORMIN HCL 500 MG TAB PO SCH ×2 (07:57→16:49)
[2023-04-18] MEDS: METOPROLOL TARTRATE 25 MG TAB PO SCH ×2 (07:57→21:35)
[2023-04-18] MEDS: ENOXAPARIN INJ 40 MG/0.4 ML SYR SQ SCH (07:57)
--- NOTE | 2023-04-18 08:45 | Hospitalist Progress Note ---
Date of Service April 18, 2023 Assessment & Plan (1) Closed right humeral fracture: Plan: -R humerus XR with spiral fracture of proximal humerus, currently without neurovascular compromise -Pt hemodynamically stable at present -Sling in place -Pain control- Tylenol po scheduled q6H, IV Torodal prn, morphine PRN severe pain -PT/OT evaluated and recommend rehab -Orthopedics consulted and recommended conservative management -immobilized at the shoulder for around 6-8 weeks. Keep sling and splint in place for now. Can transition to sling with a clam-shell shoulder brace as an outpatient. -OK to remove arm from sling periodically through the day for gentle assisted AROM at the wrist and elbow to prevent excess stiffness. -Will need follow up with Dr Rush in clinic in 7-10 days for repeat xrays - Case management going to work on getting patient set up with possible SNF rehab I left a message patient's dtr Carmen's phone yesterday and today tried a Cell number (given to me by Cat) and it was a [employer] and the woman said Carmen was not working today and the office was close. so I did not leave a message. CM and myself are trying to get patient and her family to give us a list of potential rehab facilities for us to try and get approval. (2) Fall: Plan: -Mechanical fall w/o other traumatic injury except as above -CXR, pelvic XR unremarkable -PT/OT following (3) Head injury: Plan: -Head strike with no LOC -Head CT unremarkable -Monitor mental status (4) DM type 2 (diabetes mellitus, type 2): Plan: -Well-controlled, A1C 6.2% in 12/2022 -Hold home metformin -ISS- currently on carb consistent diet (5) Hypertension: Plan: -Continue metoprolol -BP elevations on admission mild and likely 2/2 pain -BP stable now (6) Hyperlipidemia: Plan: Chronic and stable -Continue atorvastatin (7) Depression: Plan: Chronic and stable -Continue Zoloft (8) Osteoporosis: Plan: -Known history of osteoporosis on vit D supplementation in past -F/u on vit D supplementation as outpatient -No records of a bone dexa scan -Possibly osteoporosis played a role in the fracture, but injury sustained was significant enough to produce such a fracture (9) Leukocytosis: Plan: -WBC 13 on admission improved to 9.15 -Mild, likely stress demargination rather than acute infection -Monitor WBC Will repeat in AM Plan FENGI: NPO midnight for potential OR in AM Code status: Full DVT ppx: SCDs, early ambulation Isolation: None Dispo: Medical/surgical Admission and Anticipated Discharge Date Admission Date: April 15, 2023 Subjective Patient was seen this AM in rounds. She was awake and sitting up in recliner and visiting with her friend Cat. Patient was quite confused yesterday after receiving tramadol. Patient is much better today on scheduled Tylenol and prn Toradol Review of Systems Review of Systems: Patient denies any chest pain, SOB, Nausea vomiting, cough, congestion. She denies any paresthesias or anesthesias. Constitutional: no fever, no chills, no sweats and no weight loss Respiratory: no cough, no chest congestion and no dyspnea Cardiovascular: no chest pain, no dyspnea, no orthopnea and no calf pain Musculoskeletal: swelling right hand but improved with ice, pain to right arm Integumentary: no rash, no lesions and no new lesions Physical Exam Constitutional: WD/WN, vitals as above Neck: trachea midline, no thyromegaly Respiratory: normal respiratory effort, lungs clear to auscultation Cardiovascular: RRR, no murmur, no edema Gastrointestinal (Abdomen): normal bowel sounds, soft, nontender, no hepatosplenomegaly Musculoskeletal: sling in place, radial and ulnar pulses +2 symmetric, intact sensation and normal capillary refill Neurologic: PERRL, EOMI, accommodation nl, no face palsy, no dysarthria Psychiatric: Orientation: alert and oriented x 3 Results & Data Results & Data Vital Signs (Past 12 Hours) Vital Signs Temp Pulse Pulse Resp BP Pulse Ox O2 Del Method 04/18/23 07:48 37.1 C 77 16 101/62 96 Room Air 04/17/23 20:54 36.6 C 84 16 109/71 97 Room Air Laboratory Results Abnormal lab results 04/18/23 Range/Units 07:52 POC Glucose 132 H (70-99) mg/dl PG Care Time/CCT Total # of Minutes Spent Total Time Spent with Patient: Total time spent is greater than 50% in coordination of care (as documented) at patient's floor/unit and/or counseling patient: Coding Level of Care Code 27497 SUB INP/OBS CARE Diagnoses Closed right humeral fracture S42.301A Encounter type: initial encounter Fracture alignment: displaced Humerus Location: proximal Fall W19.XXXA Encounter type: initial encounter Head injury S09.90XA Encounter type: initial encounter DM type 2 (diabetes mellitus, type 2) E11.9 Hypertension I10 Hyperlipidemia E78.5 Depression F32.9 Osteoporosis M81.0 Leukocytosis D72.829 (1) Closed right humeral fracture Encounter type: initial encounter Fracture alignment: displaced Humerus Location: proximal (2) Fall Encounter type: initial encounter Qualified Code(s): W19.XXXA - Unspecified fall, initial encounter (3) Head injury Encounter type: initial encounter Qualified Code(s): S09.90XA - Unspecified injury of head, initial encounter
[2023-04-18] MEDS: KETOROLAC TROMETHAMINE 15 MG/ML VIAL IV PRN ×2 (08:48→19:51)
[2023-04-18] MEDS: POLYETHYLENE (MIRALAX) 17 GM PACK PO SCH (08:54)
[2023-04-18] MEDS ORDERED: bisacodyL 5 MG TABEC PO ONE (11:54)
[2023-04-18] MEDS: ATORVASTATIN 40 MG TAB PO SCH (21:35)
[2023-04-18] MEDS: SERTRALINE HCL 100 MG TABLET PO SCH (21:35)
[2023-04-18] MEDS: TAMSULOSIN HCL 0.4 MG CAP PO SCH (21:36)
[2023-04-19] MEDS: KETOROLAC TROMETHAMINE 15 MG/ML VIAL IV PRN ×2 (03:15→10:04)
[2023-04-19] MEDS: ACETAMINOPHEN 325 MG TAB PO SCH ×4 (05:12→22:34)
[2023-04-19 07:13] LABS: Creatinine Clr Calc Pharmacy 51.3 ml/min; Est GFR (African American) 92.7 ml/min
[2023-04-19 07:17] LABS: Hematocrit (blood only) 26.3 % (37.0-47.0); Hemoglobin 9.5 g/dl (12.0-16.0); Mean Corpuscular Hemoglobin 32.4 pg (25.0-34.0); Mean Corpuscular Hgb Conc 36.1 g/dL (32.0-36.0); Mean Corpuscular Volume 89.8 fL (80.0-100.0); Platelet Count 245 K/uL (130-400); RDW Coefficient of Variation 13.1 % (11.5-14.5); RDW Standard Deviation 43.2 fL (36.4-46.3); Red Blood Count 2.93 M/uL (4.20-5.40); White Blood Count 9.47 K/ul (4.8-10.8)
[2023-04-19] MEDS: ENOXAPARIN INJ 40 MG/0.4 ML SYR SQ SCH (08:40)
[2023-04-19] MEDS: POLYETHYLENE (MIRALAX) 17 GM PACK PO SCH (08:40)
[2023-04-19] MEDS: metFORMIN HCL 500 MG TAB PO SCH ×2 (08:40→17:32)
[2023-04-19] MEDS: METOPROLOL TARTRATE 25 MG TAB PO SCH ×2 (08:40→20:11)
[2023-04-19 10:04] LABS: Calcium 8.5 mg/dl (8.6-10.3)
[2023-04-19 10:06] LABS: BUN Creatinine Ratio 28.8 (10-20)
--- NOTE | 2023-04-19 13:09 | Hospitalist Progress Note ---
Date of Service April 19, 2023 Assessment & Plan (1) Closed right humeral fracture: Plan: Acute/unstable - low to mod risk -R humerus XR with spiral fracture of proximal humerus, currently without neurovascular compromise - Continue sling for immobilization - Pain control- Tylenol po scheduled q6H, IV Torodal prn, morphine PRN severe pain - PT/OT evaluated and recommend rehab - Orthopedics consulted, seen by Dr. Rush, recommended conservative management with sling and f/u xrays in 1 week - immobilized at the shoulder for around 6-8 weeks. Can transition to sling with a clam-shell shoulder brace as an outpatient. - OK to remove arm from sling periodically through the day for gentle assisted AROM at the wrist and elbow to prevent excess stiffness. - Case management going to work on getting patient set up with possible SNF rehab - Family agreeable to referrals to [facility] and [facility] - CM assisting in dc planning (2) Hyponatremia: Plan: Acute/unstable - Reviewed chemistry panel today, Na 131, which is new - Could be related to doses of Tramadol given for pain which has since been stopped d/t increased confusion of pt following admin - Obtain urine and serum osmol - Do not feel that she warrants IVF at this time - Trend with repeat chemistry in AM (3) Fall: Plan: Acute/stable - fall with closed head injury & humeral fx - Mechanical fall w/o other traumatic injury except as above - Struck head w/o LOC, CT negative - CXR, pelvic XR unremarkable - PT/OT following -- recommending rehab - CM consulted to assist in dc planning (4) DM type 2 (diabetes mellitus, type 2): Plan: Chronic/stable - Well-controlled, A1C 6.2% in 12/2022 - Resumed metformin - Accuchecks daily in AM - Diabetic diet (5) Osteoporosis: Plan: Chronic/stable - Known history of osteoporosis on vit D supplementation in past - F/u on vit D supplementation as outpatient - No records of a bone dexa scan - Possibly osteoporosis played a role in the fracture, but injury sustained was significant enough to produce such a fracture Plan Pt endorses constipation, a bisacodyl suppository 10mg MA has been ordered. Repeat BMP in AM. Medically stable for dc to rehab when accepted by facility and insurance auth received (if required). Plan to be d/w Dr. Drew. Admission and Anticipated Discharge Date Admission Date: April 15, 2023 Subjective Patient was seen on daily rounds this morning. She is resting comfortably in bedside recliner, accompanied by friend. Voices no complaints/concerns regarding R arm pain. She hasn't had a BM in several days. No cp or dyspnea. Physical Exam Physical Exam: GENERAL: 77 yo well-developed, well-nourished elderly F. AAOx4. NAD. LUNGS: Clear to auscultation bilaterally w/o W/R/R. CARDIOVASCULAR: Regular rate and rhythm EXTREMITIES: No edema. Non-tender. Peripheral pulses +2/4. R arm in sling, NV intact. Sensation intact. Results & Data Results & Data Vital Signs (Past 12 Hours) Vital Signs Temp Pulse Resp BP Pulse Ox O2 Del Method 04/19/23 07:40 36.7 C 72 16 130/68 94 Room Air Laboratory Results 04/19/23 06:35 04/19/23 06:35 PG Care Time/CCT Total # of Minutes Spent Total Time Spent with Patient: Total time spent is greater than 50% in coordination of care (as documented) at patient's floor/unit and/or counseling patient: Coding Level of Care Code 78740 SUB INP/OBS CARE 2/35MIN Diagnoses Closed right humeral fracture S42.301A Encounter type: initial encounter Fracture alignment: displaced Humerus Location: proximal Hyponatremia E87.1 Fall W19.XXXA Encounter type: initial encounter DM type 2 (diabetes mellitus, type 2) E11.9 Osteoporosis M81.0 (1) Closed right humeral fracture Encounter type: initial encounter Fracture alignment: displaced Humerus Location: proximal (3) Fall Encounter type: initial encounter Qualified Code(s): W19.XXXA - Unspecified f all, initial encounter
[2023-04-19] MEDS ORDERED: bisacodyL 10 MG SUPP PR STA (13:14)
[2023-04-19] MEDS: ATORVASTATIN 40 MG TAB PO SCH (20:11)
[2023-04-19] MEDS: TAMSULOSIN HCL 0.4 MG CAP PO SCH (20:11)
[2023-04-19] MEDS: SERTRALINE HCL 100 MG TABLET PO SCH (20:11)
[2023-04-20] MEDS: KETOROLAC TROMETHAMINE 15 MG/ML VIAL IV PRN (00:07)
[2023-04-20] MEDS: ACETAMINOPHEN 325 MG TAB PO SCH ×4 (05:36→22:53)
[2023-04-20] MEDS: ENOXAPARIN INJ 40 MG/0.4 ML SYR SQ SCH (09:20)
[2023-04-20] MEDS: METOPROLOL TARTRATE 25 MG TAB PO SCH ×2 (09:20→21:24)
[2023-04-20] MEDS: metFORMIN HCL 500 MG TAB PO SCH ×2 (09:21→16:32)
[2023-04-20] MEDS: POLYETHYLENE (MIRALAX) 17 GM PACK PO SCH (09:21)
[2023-04-20 09:24] LABS: BUN Creatinine Ratio 34.9 (10-20); Calcium 8.7 mg/dl (8.6-10.3); Creatinine Clr Calc Pharmacy 59.4 ml/min; Est GFR (Non-African American) 87.1 ml/min; Potassium 4.3 mmol/L (3.5-5.1)
--- NOTE | 2023-04-20 16:49 | Hospitalist Progress Note ---
Date of Service April 20, 2023 Assessment & Plan (1) Closed right humeral fracture: Plan: Acute/unstable - low to mod risk -R humerus XR with spiral fracture of proximal humerus, currently without neurovascular compromise - Continue sling for immobilization - Pain control- Tylenol po scheduled q6H, IV Torodal prn, morphine PRN severe pain - PT/OT evaluated and recommend rehab - Orthopedics consulted, seen by Dr. Rush, recommended conservative management with sling and f/u xrays in 1 week - immobilized at the shoulder for around 6-8 weeks. Can transition to sling with a clam-shell shoulder brace as an outpatient. - OK to remove arm from sling periodically through the day for gentle assisted AROM at the wrist and elbow to prevent excess stiffness. - Case management going to work on getting patient set up with possible SNF rehab - Family agreeable to referrals to [facility] and [facility] - CM assisting in dc planning (2) Hyponatremia: Plan: Acute/now improving - (3) Fall: Plan: Acute/stable - fall with closed head injury & humeral fx - Mechanical fall w/o other traumatic injury except as above - Struck head w/o LOC, CT negative - CXR, pelvic XR unremarkable - PT/OT following -- recommending rehab - CM consulted to assist in dc planning (4) DM type 2 (diabetes mellitus, type 2): Plan: Chronic/stable - Well-controlled, A1C 6.2% in 12/2022 - Resumed metformin - Accuchecks daily in AM - Diabetic diet (5) Osteoporosis: Plan: Chronic/stable - Known history of osteoporosis on vit D supplementation in past - F/u on vit D supplementation as outpatient - No records of a bone dexa scan - Possibly osteoporosis played a role in the fracture, but injury sustained was significant enough to produce such a fracture Admission and Anticipated Discharge Date Admission Date: April 15, 2023 Subjective She is resting comfortably in bedside recliner, accompanied by friend. Voices no complaints/concerns regarding R arm pain. She finally has had a bowel movement will hopefully continue to do so Physical Exam Physical Exam: Cardiac exam is regular Pulm exam is without distress Right shoulder dressing in place right hand good strength some edema to the dorsal aspect of her right hand Results & Data Results & Data Vital Signs (Past 12 Hours) Vital Signs Temp Pulse Resp BP Pulse Ox O2 Del Method 04/20/23 16:22 106/70 04/20/23 14:43 97.9 F 78 16 98/66 L 95 Room Air 04/20/23 07:08 98.2 F 77 16 148/81 H 94 Room Air Laboratory Results Reviewed chemistries PG Care Time/CCT Total # of Minutes Spent Total Time Spent with Patient: Total time spent is greater than 50% in coordination of care (as documented) at patient's floor/unit and/or counseling patient: Coding Level of Care Code 22434 SUB INP/OBS CARE 2/35MIN Diagnoses Closed right humeral fracture S42.301A Encounter type: initial encounter Fracture alignment: displaced Humerus Location: proximal Hyponatremia E87.1 Fall W19.XXXA Encounter type: initial encounter DM type 2 (diabetes mellitus, type 2) E11.9 Osteoporosis M81.0 (1) Closed right humeral fracture Encounter type: initial encounter Fracture alignment: displaced Humerus Location: proximal (3) Fall Encounter type: initial encounter Qualified Code(s): W19.XXXA - Unspecified fall, initial encounter
[2023-04-20] MEDS: TAMSULOSIN HCL 0.4 MG CAP PO SCH (21:24)
[2023-04-20] MEDS: ATORVASTATIN 40 MG TAB PO SCH (21:24)
[2023-04-20] MEDS: SERTRALINE HCL 100 MG TABLET PO SCH (21:24)
[2023-04-21] MEDS: KETOROLAC TROMETHAMINE 15 MG/ML VIAL IV PRN (03:40)
[2023-04-21] MEDS: ACETAMINOPHEN 325 MG TAB PO SCH ×2 (05:57→12:01)
[2023-04-21] MEDS: metFORMIN HCL 500 MG TAB PO SCH (09:30)
[2023-04-21] MEDS: POLYETHYLENE (MIRALAX) 17 GM PACK PO SCH (09:30)
[2023-04-21] MEDS: METOPROLOL TARTRATE 25 MG TAB PO SCH (09:30)
[2023-04-21] MEDS: ENOXAPARIN INJ 40 MG/0.4 ML SYR SQ SCH (09:30)
--- NOTE | 2023-04-21 18:02 | Discharge Summary ---
Date of Service April 21, 2023 Admission HPI Per Admitting Provider Pt is 77 yo F with PMH HTN, osteoporosis, HLD, depression, DM2 presenting with R arm pain after fall. Pt had been chasing her cat earlier this evening and fell on ground, slipping and landing on R side. She did land on her R arm and also struck her knees along with her head but did not lose consciousness. She did not have any recent symptoms such as dizziness or lightheadedness preceding her fall. She had immediate severe pain and was unable to stand. She was later brought to ER by family. Pt arrived to ER hemodynamically stable. Initial evaluation significant for K 3.2. ER interventions include intranasal fentanyl, Zofran, 0.5L NSS bolus. XR imaging of RUE revealed spiral fracture of proximal humerus. A splint was applied to her R arm. At present, pt reports continued pain but no numbness, weakness. Principal Diagnosis Right humeral fracture Hyponatremia improved Type 2 diabetes Discharge Exam stable, no distress pain controlled Discharge Data Allergies Allergy/AdvReac Type Severity Reaction Status Date / Time doxycycline Allergy Intermediate GI UPSET Verified 04/15/23 20:32 AND DIZZINESS Sulfa (Sulfonamide Allergy Intermediate HIVES Verified 04/15/23 20:32 Antibiotics) hydrocortisone Allergy Mild RASH Verified 04/15/23 20:32 cefuroxime Allergy Unknown PT DOES Verified 04/15/23 20:32 NOT REMEMBER REACTION Consultations 04/15/23 20:54 ED Decision to Admit Stat 04/15/23 21:20 Consult Orthopedic Surgery Routine Ordered Studies 04/15/23 18:48 CT cervical spine wo con Stat CT head/brain wo con Stat Hospital Course (1) Closed right humeral fracture: Acute/unstable - low to mod risk -R humerus XR with spiral fracture of proximal humerus, currently without neurovascular compromise - Continue sling for immobilization - Pain control- Tylenol po scheduled q6H, IV Torodal prn, morphine PRN severe pain - Orthopedics consulted, seen by Dr. Rush, recommended conservative management with sling and f/u xrays in 1 week - immobilized at the shoulder for around 6-8 weeks. Can transition to sling with a clam-shell shoulder brace as an outpatient. - OK to remove arm from sling periodically through the day for gentle assisted AROM at the wrist and elbow to prevent excess stiffness. (2) Hyponatremia: Acute/now improving - (3) Fall: Acute/stable - fall with closed head injury & humeral fx - Mechanical fall w/o other traumatic injury except as above - Struck head w/o LOC, CT negative - CXR, pelvic XR unremarkable - PT/OT following -- recommending rehab - (4) DM type 2 (diabetes mellitus, type 2): Chronic/stable - Well-controlled, A1C 6.2% in 12/2022 - Resumed metformin - - Diabetic diet (5) Osteoporosis: Chronic/stable - Known history of osteoporosis on vit D supplementation in past - F/u on vit D supplementation as outpatient - No records of a bone dexa scan - Possibly osteoporosis played a role in the fracture, but injury sustained was significant enough to produce such a fracture Total Time Total Time Spent Total Time Spent (In Minutes): It required 30 minutes to prepare this patient for discharge Discharge Plan Discharge Items Patient Disposition: Transfer Group Home Fac Reason For Visit: TRAUMATIC HUMERUS FRACTURE Discharge Diagnosis: humeral fracture Activity: Per Instructions section Activity Comment: PT/OT for humeral fracture Non-emergency contact: Primary Care Provider Call non-emergency contact if: your symptoms worsen Follow-up/Referrals: Hunter Padilla DO [Primary Care Provider] - Diet: Regular Addtl Attending Provider Instructions: pt is to be rehab for fractured humerus Pending Studies at Discharge: No Stand-Alone Forms: My [employer], Smoking Cessation Skilled Items Patient informed of condition?: Yes DNR: No Discharge Level of Care: Acute rehab Communicable Disease: No Discharge Prognosis: Stable Lines: None Urinary Catheter: No Medications and DC Order Prescriptions: New tamsulosin 0.4 mg Capsule 0.4 mg PO HS Qty: 30 0RF Continued (DME) insulin syringe-needle U-100 [BD Insulin Syringe Ultra-Fine] 1 mL 31 gauge x 5/16 syringe See Rx Instructions .ROUTE .MEDSUPPLY Qty: 100 0RF Rx Instructions: USE TO INJECT B12 EVERY 2 WEEKS sertraline 100 mg tablet 200 mg PO HS Qty: 180 3RF metformin 500 mg tablet 500 mg PO BID Qty: 180 3RF atorvastatin 40 mg tablet 40 mg PO HS Qty: 90 3RF metoprolol tartrate 50 mg tablet 25 mg PO BID Qty: 90 3RF (DME) lancets [OneTouch Delica Lancets] 30 gauge misc See Rx Instructions .ROUTE .MEDSUPPLY Qty: 25 Rx Instructions: tests 1 time daily (DME) Wheeled Walker Misc See Rx Instructions .Route Qty: 1 0RF Rx Instructions: As directed (DME) OneTouch Ultra Blue Test Strip Strip See Rx Instructions .ROUTE .MEDSUPPLY Rx Instructions: tests 1 time daily; pt states does PRN nystatin 100,000 unit/gram cream 1 applic topical BID PRN (Reason: Skin Irritation) (DME) Walking Cane Misc See Rx Instructions .Route Rx Instructions: As directed naproxen sodium 220 mg tablet 220 mg PO Q8H PRN (Reason: pain) cyanocobalamin (vitamin B-12) 1,000 mcg/mL solution 1,000 mcg IM .Q2W Discharge Orders: Discharge Order (Routine); Ordered 04/21/23 Ordered By: Navi Drew Admission Data Admit Date/Time: 04/15/23 21:20 Attending Provider: Navi Drew Admit Provider: Martha Hobson Primary Care Provider: Hunter Padilla Other Providers: Bj Rush ; Kaila Schofield ; Jagdish Prakash ; Nubia Harper ; Polo Zimmer ; Mikki Wang ; Chrissie Linton ; Henry Morelos ; Chester Shields ; Diana Wen ; Jose Toro ; Hunter Gonzalez ; Hunter Arora ; Bhavin Branch ; [facility] ; [facility] Other Interventions: Discharge Summary Assessment (RN) Last Done: 04/21/23 11:57 Coding Level of Care Code 97781 IN/OBS DISCH 30 MIN/LESS Diagnoses Closed right humeral fracture S42.301A Encounter type: initial encounter Fracture alignment: displaced Humerus Location: proximal Hyponatremia E87.1 Fall W19.XXXA Encounter type: initial encounter DM type 2 (diabetes mellitus, type 2) E11.9 Osteoporosis M81.0
== END 2023-04-21 15:15 | DRG 543 ==
LOC: ED 18:42 → 3N 21:20 → SUATTDRO 21:20 → 3N 23:30